=== PATIENT | female | born 1955 | race Caucasian/White ===

== ENCOUNTER 2019-01-03 09:02 | Inpatient (IN) | payer BC ==
[~2019-01-03] VITALS: Ht 142.2 cm; Wt 48.8 kg
[2019-01-03] MEDS ORDERED: NOR5 PO (09:35)
[2019-01-03] MEDS ORDERED: FUROSEMIDE20 MG PO (09:35)
[2019-01-03] MEDS ORDERED: CARVEDILOL3.125 M1 PO (09:36)
[2019-01-03] MEDS ORDERED: SENNA8.6 M2 PO (09:37)
[2019-01-03] MEDS ORDERED: ACETAMINOPHEN-H1 TA1 PO (09:38)
[2019-01-03] MEDS ORDERED: GLYBURIDE5 MG PO (09:39)
[2019-01-03] MEDS ORDERED: PRO40 PO (09:39)
[2019-01-03] MEDS ORDERED: NOVAPLUS VANCO125 MG PO (09:40)
[2019-01-03 10:42] LABS: CALCIUM 8.1 mg/dL (8.5-10.1); CARBON DIOXIDE 27.7 mmol/L (21-32); CREATININE SERUM 2.9 mg/dL (0.6-1.0); POTASSIUM SERUM 4.6 mmol/L (3.5-5.1)
[2019-01-03 10:56] LABS: BILIRUBIN TOTAL 0.5 mg/dL (0.20-1.00); TOTAL PROTEIN, SERUM 6.5 g/dL (6.4-8.2)
[2019-01-03 11:03] LABS: ALBUMIN 1.6 g/dL (3.4-5.0)
[2019-01-03 13:51] LABS: BASOPHIL % 0.9 % (0-2); PLATELET COUNT 324 x10^3mcL (130-400)
[2019-01-03 14:47] LABS: MAGNESIUM 2.6 mg/dL (1.8-2.4); PHOSPHOROUS 3.5 mg/dL (2.5-4.9)
[2019-01-03 14:50] LABS: CHOLESTEROL/HDL RATIO 4.6
[2019-01-03 14:54] VITALS: BP 117/62
[2019-01-03 14:57] VITALS: Ht 142.2 cm; Wt 48.8 kg
[2019-01-03 16:01] LABS: RED CELL DISTRIBUTION WIDTH 16.2 % (11.5-14.5)
[2019-01-03 22:21] VITALS: BP 134/74
[2019-01-04 05:16] VITALS: BP 130/56
[2019-01-04 08:47] VITALS: BP 148/67
[2019-01-04 09:02] LABS: PLATELET COUNT 299 x10^3mcL (130-400)
[2019-01-04 09:04] LABS: BASOPHIL % 0 % (0-2); RED CELL DISTRIBUTION WIDTH 18.4 % (11.5-14.5)
[2019-01-04 09:26] LABS: CALCIUM 7.8 mg/dL (8.5-10.1); CARBON DIOXIDE 29.3 mmol/L (21-32); MAGNESIUM 1.8 mg/dL (1.8-2.4); PHOSPHOROUS 2.1 mg/dL (2.5-4.9); POTASSIUM SERUM 3.4 mmol/L (3.5-5.1)
[2019-01-04 13:48] VITALS: BP 145/65
[2019-01-04 15:46] LABS: SOURCE FLUID PLEURAL
[2019-01-04 16:01] LABS: APPEARANCE FLUID CLEAR
[2019-01-04 16:02] LABS: RBC FLUID 128 /cumm; WBC FLUID 61 /cumm
[2019-01-04 16:03] LABS: LYMPHOCYTE FLUID 50 %; MONOCYTE FLUID 10 %
[2019-01-04 16:05] LABS: COLOR FLUID PALE YELLOW
[2019-01-04 16:49] VITALS: BP 98/54
[2019-01-04 19:44] VITALS: BP 133/50
[2019-01-05 05:07] VITALS: BP 178/76
[2019-01-05 06:39] VITALS: BP 145/62
[2019-01-05 06:53] LABS: CALCIUM 7.7 mg/dL (8.5-10.1); CARBON DIOXIDE 28.3 mmol/L (21-32); CREATININE SERUM 2.3 mg/dL (0.6-1.0); MAGNESIUM 1.8 mg/dL (1.8-2.4); POTASSIUM SERUM 3.7 mmol/L (3.5-5.1)
[2019-01-05 07:07] LABS: PLATELET COUNT 328 x10^3mcL (130-400); RED CELL DISTRIBUTION WIDTH 17.2 % (11.5-14.5)
[2019-01-05 09:00] VITALS: BP 128/56
[2019-01-05 09:10] LABS: BAND NEUTROPHIL 0 % (0-10); BASOPHIL 0 % (0-2); MONOCYTE 5 % (0-7); SEGMENTED NEUTROPHILS 89 % (37-75)
[2019-01-05 09:13] LABS: rbc morphology (normal/abnorm) ABNORMAL (NORMAL)
[2019-01-05 09:14] LABS: PLATELET MORPHOLOGY PLATELETS NORMAL
[2019-01-05 12:00] VITALS: BP 147/61
[2019-01-05 16:40] VITALS: BP 134/61
[2019-01-05 20:35] VITALS: BP 127/56
[2019-01-06 04:47] VITALS: BP 143/61
[2019-01-06 07:51] LABS: CALCIUM 7.7 mg/dL (8.5-10.1); CARBON DIOXIDE 29.7 mmol/L (21-32); CREATININE SERUM 1.7 mg/dL (0.6-1.0); POTASSIUM SERUM 3.2 mmol/L (3.5-5.1)
[2019-01-06 08:43] LABS: PLATELET COUNT 243 x10^3mcL (130-400); RED CELL DISTRIBUTION WIDTH 16.5 % (11.5-14.5)
[2019-01-06 09:10] VITALS: BP 128/61
[2019-01-06 09:49] LABS: BAND NEUTROPHIL 3 % (0-10); BASOPHIL 0 % (0-2); MONOCYTE 4 % (0-7); SEGMENTED NEUTROPHILS 82 % (37-75); rbc morphology (normal/abnorm) NORMAL (NORMAL)
[2019-01-06 09:50] LABS: PLATELET MORPHOLOGY PLATELETS NORMAL
[2019-01-06 13:15] VITALS: BP 117/46
[2019-01-06 16:30] VITALS: BP 146/86
[2019-01-06 20:42] VITALS: BP 172/78
[2019-01-06 21:58] VITALS: BP 151/70
[2019-01-07 05:04] VITALS: BP 126/58
[2019-01-07 08:14] VITALS: BP 136/73
[2019-01-07 08:17] LABS: BASOPHIL % 0.2 % (0-2); PLATELET COUNT 293 x10^3mcL (130-400)
[2019-01-07 08:18] LABS: RED CELL DISTRIBUTION WIDTH 16.4 % (11.5-14.5)
[2019-01-07 08:34] LABS: CALCIUM 7.7 mg/dL (8.5-10.1); CARBON DIOXIDE 26.6 mmol/L (21-32); CREATININE SERUM 2.4 mg/dL (0.6-1.0); POTASSIUM SERUM 4.1 mmol/L (3.5-5.1)
[2019-01-07 11:56] VITALS: BP 147/70
[2019-01-07 16:19] VITALS: BP 130/61
[2019-01-07 18:50] VITALS: BP 181/78
[2019-01-08 05:43] VITALS: BP 158/69
[2019-01-08 06:36] LABS: CALCIUM 7.5 mg/dL (8.5-10.1); CARBON DIOXIDE 27.3 mmol/L (21-32); CREATININE SERUM 1.6 mg/dL (0.6-1.0)
[2019-01-08 06:54] LABS: BASOPHIL % 0.2 % (0-2); PLATELET COUNT 292 x10^3mcL (130-400)
[2019-01-08 07:08] LABS: RED CELL DISTRIBUTION WIDTH 16.6 % (11.5-14.5)
[2019-01-08 08:11] VITALS: BP 157/71
[2019-01-08 12:14] VITALS: BP 150/73
[2019-01-08 16:38] VITALS: BP 165/75
[2019-01-08 16:50] VITALS: BP 147/70
[2019-01-08 19:51] VITALS: BP 161/70
[2019-01-09] VITALS (7 sets, daily range): BP systolic 134–174; BP diastolic 64–78
[2019-01-09 06:28] LABS: BASOPHIL % 0.3 % (0-2); PLATELET COUNT 329 x10^3mcL (130-400); RED CELL DISTRIBUTION WIDTH 16.1 % (11.5-14.5)
[2019-01-09 07:02] LABS: CALCIUM 7.7 mg/dL (8.5-10.1); CARBON DIOXIDE 24.5 mmol/L (21-32); CREATININE SERUM 2.1 mg/dL (0.6-1.0); POTASSIUM SERUM 4.1 mmol/L (3.5-5.1)
[2019-01-09 12:46] LABS: BASOPHIL % 0.2 % (0-2); PLATELET COUNT 289 x10^3mcL (130-400)
[2019-01-09 12:50] LABS: RED CELL DISTRIBUTION WIDTH 16.5 % (11.5-14.5)
[2019-01-09 12:52] LABS: CALCIUM 7.6 mg/dL (8.5-10.1); CREATININE SERUM 2.1 mg/dL (0.6-1.0); POTASSIUM SERUM 4.2 mmol/L (3.5-5.1)
[2019-01-09] MEDS ORDERED: DEX4 GLUCOSE15 GM PO (13:24)
[2019-01-09] MEDS ORDERED: TAMIFLU30 MG PO (13:25)
[2019-01-09] MEDS ORDERED: LAC PO (14:03)
[2019-01-09] MEDS ORDERED: AMOXICILLIN500 M1 PO (14:11)
[2019-01-09] MEDS ORDERED: FLE10 PO (14:13)
[2019-01-09] MEDS ORDERED: LEVAQUIN250 M1 PO (14:31)
== END 2019-01-09 20:15 | disposition home or self-care (01) | DRG 70 ==
LOC: ED 09:02 → DU 13:28 → MU 01-05 11:55 → DU 01-07 17:07
PROVIDERS: Emergency Medicine; Internal Medicine; ADMIT General Practice
PROC: 5A1D70Z Performance of Urinary Filtration, Intermittent, Less than 6 Hours Per Day (ICD-10-PCS; principal; 2019-01-03)
PROC: 5A1D70Z Performance of Urinary Filtration, Intermittent, Less than 6 Hours Per Day (ICD-10-PCS; 2019-01-04)
PROC: 0W9B3ZZ Drainage of Left Pleural Cavity, Percutaneous Approach (ICD-10-PCS; 2019-01-04)
PROC: 5A1D70Z Performance of Urinary Filtration, Intermittent, Less than 6 Hours Per Day (ICD-10-PCS; 2019-01-05)
PROC: 5A1D70Z Performance of Urinary Filtration, Intermittent, Less than 6 Hours Per Day (ICD-10-PCS; 2019-01-07)
DX: G93.41 Metabolic encephalopathy (principal); E43 Unspecified severe protein-calorie malnutrition; N18.6 End stage renal disease; J18.9 Pneumonia, unspecified organism; E87.1 Hypo-osmolality and hyponatremia; J90 Pleural effusion, not elsewhere classified; I13.2 Hypertensive heart and chronic kidney disease with heart failure and with stage 5 chronic kidney disease, or end stage renal disease; E11.649 Type 2 diabetes mellitus with hypoglycemia without coma; E83.41 Hypermagnesemia; B96.89 Other specified bacterial agents as the cause of diseases classified elsewhere; I50.9 Heart failure, unspecified; E83.39 Other disorders of phosphorus metabolism; E87.6 Hypokalemia; J10.1 Influenza due to other identified influenza virus with other respiratory manifestations; E11.22 Type 2 diabetes mellitus with diabetic chronic kidney disease; D63.8 Anemia in other chronic diseases classified elsewhere; E78.5 Hyperlipidemia, unspecified; Z83.3 Family history of diabetes mellitus; Z86.73 Personal history of transient ischemic attack (TIA), and cerebral infarction without residual deficits; Z99.2 Dependence on renal dialysis; Z68.24 Body mass index [BMI] 24.0-24.9, adult
CPT/HCPCS: 32555; 82962; 83880; 87804; 88344; 94150; 97110-GP; 97116-GP; 97530-GP; C1729; J0456; J0696; J1644; J2405; J2543; J3010; J3480; J3490; J7030; J7040; J7042; J7050; J7060; P9047; Q0092

== ENCOUNTER 2019-02-08 00:31 | Inpatient (IN) | payer BC ==
[~2019-02-08] VITALS: Ht 144.8 cm; Wt 39.9 kg
[~2019-02-08 00:31] MED LIST: ACETAMINOPHEN-H1 TA1 PO; AMOXICILLIN500 M1 PO; CARVEDILOL3.125 M1 PO; DEX4 GLUCOSE15 GM PO; FLE10 PO; FUROSEMIDE20 MG PO; GLYBURIDE5 MG PO; LAC PO; LEVAQUIN250 M1 PO; NOR5 PO; NOVAPLUS VANCO125 MG PO; PRO40 PO; SENNA8.6 M2 PO; TAMIFLU30 MG PO
[2019-02-08 00:41] VITALS: Ht 144.8 cm; Wt 39.9 kg
[2019-02-08 02:59] LABS: BILIRUBIN TOTAL 0.3 mg/dL (0.20-1.00); CALCIUM 8.1 mg/dL (8.5-10.1); CARBON DIOXIDE 31.3 mmol/L (21-32); CREATININE SERUM 3.7 mg/dL (0.6-1.0); POTASSIUM SERUM 3.4 mmol/L (3.5-5.1); TOTAL PROTEIN, SERUM 6.7 g/dL (6.4-8.2)
[2019-02-08 03:06] LABS: PLATELET COUNT 336 x10^3mcL (130-400)
[2019-02-08 03:09] LABS: ALBUMIN 1.8 g/dL (3.4-5.0)
[2019-02-08 03:12] LABS: BASOPHIL % 0 % (0-2); RED CELL DISTRIBUTION WIDTH 21.3 % (11.5-14.5)
[2019-02-08] MEDS ORDERED: LOMOTIL1 TAB PO (03:22)
[2019-02-08 04:51] LABS: T3 TOTAL 0.42 ng/mL
[2019-02-08 05:02] LABS: FREE T4 0.61 ng/dL (0.76-1.46)
[2019-02-08 05:06] LABS: FREE THYROXINE INDEX 1.2 ug/dL (1.4-4.5); T4(THYROXINE) 3.1 ug/dL (4.7-13.3)
[2019-02-08 07:58] LABS: PLATELET COUNT 303 x10^3mcL (130-400)
[2019-02-08 08:04] LABS: CARBON DIOXIDE 31.1 mmol/L (21-32); CREATININE SERUM 3.8 mg/dL (0.6-1.0); POTASSIUM SERUM 3.6 mmol/L (3.5-5.1)
[2019-02-08 08:35] LABS: RED CELL DISTRIBUTION WIDTH 21.6 % (11.5-14.5)
[2019-02-08 09:49] LABS: BAND NEUTROPHIL 1 % (0-10); BASOPHIL 0 % (0-2); MONOCYTE 2 % (0-7); SEGMENTED NEUTROPHILS 95 % (37-75)
[2019-02-08 09:50] LABS: rbc morphology (normal/abnorm) ABNORMAL (NORMAL)
[2019-02-08 14:21] VITALS: BP 161/75
[2019-02-08 18:01] VITALS: BP 139/71
[2019-02-08 21:38] VITALS: BP 120/64
[2019-02-09] VITALS (7 sets, daily range): BP systolic 128–168; BP diastolic 68–80
[2019-02-09 07:28] LABS: CALCIUM 7.4 mg/dL (8.5-10.1); CARBON DIOXIDE 27.9 mmol/L (21-32); CREATININE SERUM 2.1 mg/dL (0.6-1.0); POTASSIUM SERUM 3.1 mmol/L (3.5-5.1)
[2019-02-09 08:07] LABS: PLATELET COUNT 288 x10^3mcL (130-400)
[2019-02-09 09:23] LABS: BASOPHIL % 0 % (0-2); RED CELL DISTRIBUTION WIDTH 21.7 % (11.5-14.5)
[2019-02-10] VITALS (7 sets, daily range): BP systolic 103–191; BP diastolic 61–92
[2019-02-10 06:20] LABS: CALCIUM 7.4 mg/dL (8.5-10.1); CREATININE SERUM 2.4 mg/dL (0.6-1.0); POTASSIUM SERUM 3.8 mmol/L (3.5-5.1)
[2019-02-10 06:29] LABS: BASOPHIL % 0.3 % (0-2); PLATELET COUNT 319 x10^3mcL (130-400)
[2019-02-10 07:32] LABS: RED CELL DISTRIBUTION WIDTH 20.5 % (11.5-14.5)
[2019-02-10 10:27] LABS: rbc morphology (normal/abnorm) ABNORMAL (NORMAL)
[2019-02-11 06:31] VITALS: BP 178/82
[2019-02-11 06:48] LABS: BASOPHIL % 0.2 % (0-2); PLATELET COUNT 174 x10^3mcL (130-400)
[2019-02-11 06:57] LABS: RED CELL DISTRIBUTION WIDTH 19.9 % (11.5-14.5)
[2019-02-11 07:24] LABS: CALCIUM 7.7 mg/dL (8.5-10.1); CARBON DIOXIDE 25.3 mmol/L (21-32); CREATININE SERUM 1.7 mg/dL (0.6-1.0); POTASSIUM SERUM 3.5 mmol/L (3.5-5.1)
[2019-02-11 09:34] VITALS: BP 178/96
[2019-02-11 16:15] VITALS: BP 121/62; BP 178/96
[2019-02-11 17:59] VITALS: BP 112/60
== END 2019-02-11 18:19 | disposition short-term general hospital (02) | DRG 871 ==
LOC: ED 00:31 → DU 03:06 → MU 02-10 11:30
PROVIDERS: Emergency Medicine; Internal Medicine; Internal Medicine Gastroenterology; ADMIT Family Medicine
PROC: 0DB68ZX Excision of Stomach, Via Natural or Artificial Opening Endoscopic, Diagnostic (ICD-10-PCS; 2019-02-09)
PROC: 5A1D70Z Performance of Urinary Filtration, Intermittent, Less than 6 Hours Per Day (ICD-10-PCS; 2019-02-09)
PROC: 0W9B3ZZ Drainage of Left Pleural Cavity, Percutaneous Approach (ICD-10-PCS; principal; 2019-02-09 08:30)
PROC: 0DB58ZX Excision of Esophagus, Via Natural or Artificial Opening Endoscopic, Diagnostic (ICD-10-PCS; 2019-02-09 08:30)
PROC: 5A1D70Z Performance of Urinary Filtration, Intermittent, Less than 6 Hours Per Day (ICD-10-PCS; 2019-02-10)
DX: A41.9 Sepsis, unspecified organism (principal); K27.4 Chronic or unspecified peptic ulcer, site unspecified, with hemorrhage; N18.6 End stage renal disease; J18.9 Pneumonia, unspecified organism; E43 Unspecified severe protein-calorie malnutrition; I12.0 Hypertensive chronic kidney disease with stage 5 chronic kidney disease or end stage renal disease; N17.9 Acute kidney failure, unspecified; E87.1 Hypo-osmolality and hyponatremia; M46.26 Osteomyelitis of vertebra, lumbar region; K92.0 Hematemesis; Z68.1 Body mass index [BMI] 19.9 or less, adult; J91.8 Pleural effusion in other conditions classified elsewhere; J44.0 Chronic obstructive pulmonary disease with (acute) lower respiratory infection; E03.9 Hypothyroidism, unspecified; E87.6 Hypokalemia; K76.0 Fatty (change of) liver, not elsewhere classified; K20.9 Esophagitis, unspecified; K44.9 Diaphragmatic hernia without obstruction or gangrene; K31.7 Polyp of stomach and duodenum; D63.8 Anemia in other chronic diseases classified elsewhere; E11.51 Type 2 diabetes mellitus with diabetic peripheral angiopathy without gangrene; E11.649 Type 2 diabetes mellitus with hypoglycemia without coma; M51.46 Schmorl's nodes, lumbar region; E11.22 Type 2 diabetes mellitus with diabetic chronic kidney disease; E78.5 Hyperlipidemia, unspecified; Z90.49 Acquired absence of other specified parts of digestive tract; Z90.710 Acquired absence of both cervix and uterus; Z83.3 Family history of diabetes mellitus; Z99.2 Dependence on renal dialysis; Z86.73 Personal history of transient ischemic attack (TIA), and cerebral infarction without residual deficits; Z87.11 Personal history of peptic ulcer disease
CPT/HCPCS: 32555; 43235; 82962; 84439; 97116-GP; 97530-GP; C1729; C9113; J1200; J1610; J1644; J1815; J2250; J2310; J2543; J2765; J3010; J3370; J3490; J7030; J7042; J7050; Q0092

== ENCOUNTER 2019-02-20 03:10 | Inpatient (IN) | payer BC ==
[~2019-02-20] VITALS: Ht 152.4 cm; Wt 39.7 kg
[~2019-02-20 03:10] MED LIST changes: +LOMOTIL1 TAB PO
[2019-02-20 04:42] LABS: microscopic required? YES; urine erythrocyte NEGATIVE (NEGATIVE)
[2019-02-20 05:12] LABS: PLATELET COUNT 430 x10^3mcL (130-400); RED CELL DISTRIBUTION WIDTH 19.1 % (11.5-14.5)
[2019-02-20 05:18] LABS: MONOCYTE 2 % (0-7); SEGMENTED NEUTROPHILS 94 % (37-75)
[2019-02-20 05:20] LABS: rbc morphology (normal/abnorm) ABNORMAL (NORMAL)
[2019-02-20 05:21] LABS: PLATELET MORPHOLOGY PLATELETS NORMAL
[2019-02-20 05:23] LABS: CALCIUM 8.7 mg/dL (8.5-10.1); CARBON DIOXIDE 28.6 mmol/L (21-32); POTASSIUM SERUM 3.3 mmol/L (3.5-5.1)
[2019-02-20 05:26] LABS: BILIRUBIN TOTAL 0.3 mg/dL (0.20-1.00); TOTAL PROTEIN, SERUM 7.7 g/dL (6.4-8.2)
[2019-02-20 06:42] LABS: FREE T4 0.91 ng/dL (0.76-1.46)
[2019-02-20 06:51] LABS: FREE T4 0.92 ng/dL (0.76-1.46); T3 TOTAL 0.68 ng/mL; T4(THYROXINE) 5.8 ug/dL (4.7-13.3)
[2019-02-20 06:52] LABS: CHOLESTEROL/HDL RATIO 4.3
[2019-02-20 07:48] VITALS: Ht 152.4 cm; Wt 39.7 kg
[2019-02-20 11:13] VITALS: BP 125/60
[2019-02-20 12:00] VITALS: BP 126/74
[2019-02-20 16:00] VITALS: BP 114/57
[2019-02-20 20:47] VITALS: BP 164/74
[2019-02-21 05:36] VITALS: BP 129/47
[2019-02-21 06:43] LABS: CALCIUM 7.9 mg/dL (8.5-10.1); CARBON DIOXIDE 23.9 mmol/L (21-32); CREATININE SERUM 3.2 mg/dL (0.6-1.0); MAGNESIUM 1.9 mg/dL (1.8-2.4); PHOSPHOROUS 4.4 mg/dL (2.5-4.9); POTASSIUM SERUM 4.6 mmol/L (3.5-5.1)
[2019-02-21 06:46] LABS: BASOPHIL % 0.2 % (0-2); PLATELET COUNT 340 x10^3mcL (130-400)
[2019-02-21 08:07] LABS: RED CELL DISTRIBUTION WIDTH 19.1 % (11.5-14.5)
[2019-02-21 08:56] VITALS: BP 168/72
[2019-02-21 12:19] LABS: rbc morphology (normal/abnorm) ABNORMAL (NORMAL)
[2019-02-21 13:36] VITALS: BP 177/71
[2019-02-21 17:20] VITALS: BP 180/71
[2019-02-21 18:50] LABS: BASOPHIL % 0.4 % (0-2); PLATELET COUNT 345 x10^3mcL (130-400)
[2019-02-21 18:53] LABS: RED CELL DISTRIBUTION WIDTH 18.4 % (11.5-14.5)
[2019-02-21 20:58] VITALS: BP 156/63
[2019-02-22 05:50] VITALS: BP 198/92
[2019-02-22 06:37] LABS: BASOPHIL % 0.2 % (0-2); PLATELET COUNT 342 x10^3mcL (130-400)
[2019-02-22 06:56] LABS: RED CELL DISTRIBUTION WIDTH 18.4 % (11.5-14.5)
[2019-02-22 07:02] LABS: CALCIUM 8.2 mg/dL (8.5-10.1); CREATININE SERUM 2.5 mg/dL (0.6-1.0); MAGNESIUM 1.6 mg/dL (1.8-2.4); PHOSPHOROUS 3.8 mg/dL (2.5-4.9); POTASSIUM SERUM 3.7 mmol/L (3.5-5.1)
[2019-02-22 09:38] VITALS: BP 150/64
[2019-02-22 13:03] VITALS: BP 191/83
[2019-02-22 18:51] VITALS: BP 189/82
[2019-02-22 21:10] VITALS: BP 163/75
[2019-02-23 05:54] VITALS: BP 180/82
[2019-02-23 06:27] LABS: CALCIUM 8.1 mg/dL (8.5-10.1); CARBON DIOXIDE 25.2 mmol/L (21-32); CREATININE SERUM 3.2 mg/dL (0.6-1.0); MAGNESIUM 1.8 mg/dL (1.8-2.4); POTASSIUM SERUM 4.3 mmol/L (3.5-5.1)
[2019-02-23 08:20] LABS: BASOPHIL % 0.3 % (0-2); PLATELET COUNT 346 x10^3mcL (130-400); RED CELL DISTRIBUTION WIDTH 18.3 % (11.5-14.5)
[2019-02-23 09:54] VITALS: BP 160/86
[2019-02-23 13:04] VITALS: BP 186/80
[2019-02-23 15:42] VITALS: BP 182/85
[2019-02-23] MEDS ORDERED: VANCOCIN125 MG PO (15:43)
[2019-02-23] MEDS ORDERED: LEVAQUIN750 MG PO (15:46)
[2019-02-23 19:40] VITALS: BP 126/66
[2019-02-24 13:05] LABS: LIVER-KIDNEY MICROSOMAL AB 1.2 Units (0.0-20.0)
== END 2019-02-23 20:20 | disposition home health service (06) | DRG 871 ==
LOC: ED 03:10 → IC 06:12 → DU 06:12 → IC 07:37 → DU 19:20
PROVIDERS: Emergency Medicine; Family Medicine; Specialist; ADMIT Internal Medicine
PROC: 30233N1 Transfusion of Nonautologous Red Blood Cells into Peripheral Vein, Percutaneous Approach (ICD-10-PCS; principal; 2019-02-21)
PROC: 5A1D70Z Performance of Urinary Filtration, Intermittent, Less than 6 Hours Per Day (ICD-10-PCS; 2019-02-21)
DX: A41.9 Sepsis, unspecified organism (principal); N18.6 End stage renal disease; J18.1 Lobar pneumonia, unspecified organism; G93.41 Metabolic encephalopathy; E43 Unspecified severe protein-calorie malnutrition; Z68.1 Body mass index [BMI] 19.9 or less, adult; E87.1 Hypo-osmolality and hyponatremia; A04.72 Enterocolitis due to Clostridium difficile, not specified as recurrent; I12.0 Hypertensive chronic kidney disease with stage 5 chronic kidney disease or end stage renal disease; M86.8X9 Other osteomyelitis, unspecified sites; E11.22 Type 2 diabetes mellitus with diabetic chronic kidney disease; D72.829 Elevated white blood cell count, unspecified; E11.649 Type 2 diabetes mellitus with hypoglycemia without coma; E87.6 Hypokalemia; E78.5 Hyperlipidemia, unspecified; E02 Subclinical iodine-deficiency hypothyroidism; D63.8 Anemia in other chronic diseases classified elsewhere; E11.69 Type 2 diabetes mellitus with other specified complication; Z99.2 Dependence on renal dialysis; Z86.73 Personal history of transient ischemic attack (TIA), and cerebral infarction without residual deficits; Z87.11 Personal history of peptic ulcer disease; Z79.899 Other long term (current) drug therapy
CPT/HCPCS: 82962; 84439; 86376; 97110-GP; 97116-GP; 97530-GP; J0696; J1644; J1956; J2405; J2543; J3490; J7030; J7040; J7050; J7070; P9016; P9047

== ENCOUNTER 2019-04-01 16:50 | Inpatient (IN) | payer BC, OTHER ==
[~2019-04-01] VITALS: Ht 152.4 cm; Wt 34.9 kg
[~2019-04-01 16:50] MED LIST changes: +LEVAQUIN750 MG PO; +VANCOCIN125 MG PO
[2019-04-01 17:02] VITALS: Ht 152.4 cm; Wt 34.9 kg
--- NOTE | 2019-04-01 18:43 | NUR ---
PT PRESENTS TO ED DUE TO GETTING CHILLS AFTER RECEIVING DIALYSIS TODAY. PER PATIENT'S , PATIENT RECEIVES DIALYSIS ON MONDAYS AND FRIDAYS. STS THAT PATIENT WAS GIVEN INSTRUCTIONS TO GET A BLOOD CULTURE RESULTS. PATIENT DOES STS SHE CURRENTLY HAS RIGHT SIDED FLANK PAIN. AWAITING MSE
--- NOTE | 2019-04-01 19:11 | NUR ---
REPORT OFF TO DOUGLAS SIMPSON
--- NOTE | 2019-04-01 19:14 | NUR ---
REPORT RECIEVED FROM COLBY COLE
[2019-04-01 19:19] LABS: PLATELET COUNT 236 x10^3mcL (130-400)
[2019-04-01 19:24] LABS: RED CELL DISTRIBUTION WIDTH 15.8 % (11.5-14.5)
--- NOTE | 2019-04-01 19:27 | NUR ---
PT STATES SHE IS UNABLE TO PROVIDE URINE AT THIS TIME
[2019-04-01 19:34] LABS: C REACTIVE PROTEIN 11.5 mg/dL (<=0.9); CREATININE SERUM 3.5 mg/dL (0.6-1.0); GFR1 14 mL/min
[2019-04-01 19:41] LABS: CK-MB 2.6 ng/mL (0-3.6)
[2019-04-01 19:52] LABS: BAND NEUTROPHIL 2 % (0-10); MONOCYTE 2 % (0-7); SEGMENTED NEUTROPHILS 89 % (37-75)
[2019-04-01 19:55] LABS: PLATELET MORPHOLOGY PLATELETS NORMAL; rbc morphology (normal/abnorm) ABNORMAL (NORMAL)
[2019-04-01 19:58] LABS: CALCIUM 8.6 mg/dL (8.5-10.1); CARBON DIOXIDE 30.3 mmol/L (21-32); CHLORIDE SERUM 95 mmol/L (98-107); GLUCOSE SERUM 248 mg/dL (74-106); POTASSIUM SERUM 4.3 mmol/L (3.5-5.1); SODIUM SERUM 139 mmol/L (136-145)
[2019-04-01 20:04] LABS: ALKALINE PHOSPHATASE 121 U/L (46-116); ALT/SGPT 15 U/L (14-59); AST/SGOT 15 U/L (15-37); BILIRUBIN TOTAL 0.25 mg/dL (0.20-1.00); TOTAL PROTEIN, SERUM 7.5 g/dL (6.4-8.2)
[2019-04-01 20:05] LABS: ALBUMIN 2.5 g/dL (3.4-5.0)
[2019-04-01 20:26] LABS: ERYTHROCYTE SED RATE 103 mm/hr (0-30)
[2019-04-01 20:38] LABS: T3 TOTAL 0.71 ng/mL
[2019-04-01 20:52] LABS: FREE T4 0.72 ng/dL (0.76-1.46)
--- NOTE | 2019-04-01 20:58 | NUR ---
PT STATES SHE IS STILL UNABLE TO PROVIDE URINE AT THIS TIME
[2019-04-01 21:01] LABS: FREE THYROXINE INDEX 1.5 ug/dL (1.4-4.5); T4(THYROXINE) 4.3 ug/dL (4.7-13.3)
[2019-04-01] MEDS ORDERED: COR3 PO (22:23)
--- NOTE | 2019-04-01 22:43 | NUR ---
DONG REPORT TO EM COLE
[2019-04-01 22:51] LABS: MAGNESIUM 2.1 mg/dL (1.8-2.4); PHOSPHOROUS 4.8 mg/dL (2.5-4.9)
[2019-04-01 22:59] LABS: CHOLESTEROL/HDL RATIO 5.8
[2019-04-01 23:09] VITALS: BP 171/89
--- NOTE | 2019-04-01 23:12 | NUR ---
RECEIVED PT FROM ED VIA GHISLAINE. ORIENTED PT TO ROOM AND SURROUNDINGS. IV NOTED TO LFA PATENT AND INTACT. TELE 24 PLACED ON PT READING NSR. INSTRUCTED PT ON THE USE OF CALL LIGHT FOR ASSISTANCE. ENDORSED PT TO PRIMARY NURSE BHARTI
--- NOTE | 2019-04-01 23:55 | NUR ---
RECIEVED PT FROM SURU RN IN NO ACUTE DISTRESS. TELE #24, SR. BREATHING E/U ON RA. PT HAD LOOSE BM AT THIS TIME. HD ACCESS TO RCW AND RFA. IV TO LFA PATENT AND INFUSING. ORIENTED TO ROOM. AT BEDSIDE. BED IN LOWEST POSITION, 2 SIDE RAILS UP, CALL LIGHT IN REACH. INSTRUCTED TO CALL FOR ASSISTANCE.
--- NOTE | 2019-04-02 03:28 | NUR ---
RESTING IN BED WITH EYES CLOSED. BREATHING E/U. NO ACUTE DISTRESS NOTED. WILL CONTINUE TO MONITOR.
[2019-04-02 05:06] VITALS: BP 186/86
--- NOTE | 2019-04-02 06:55 | NUR ---
NO C/O CHILLS OVERNIGHT. NO ACUTE DISTRESS NOTED. NO ACUTE CHANGES. WILL ENDORSE TO ONCOMING RN.
[2019-04-02 06:57] LABS: BASOPHIL % 0.1 % (0-2); PLATELET COUNT 245 x10^3mcL (130-400)
[2019-04-02 07:04] LABS: CALCIUM 8.6 mg/dL (8.5-10.1); CARBON DIOXIDE 29.5 mmol/L (21-32); CREATININE SERUM 3.6 mg/dL (0.6-1.0); POTASSIUM SERUM 3.9 mmol/L (3.5-5.1)
--- NOTE | 2019-04-02 07:05 | NUR ---
RECEIVED PATIENT FROM PSYCH COORDINATOR NURSE. PATIENT IS AWAKE, ALERT AND ORIENTED. TELE#24, SR, HR 96, DENIES CP AND PRESSURE. ON ROOM AIR, BREATHING EVEN AND UNLABORED, DENIES SOB. AV SHUNT NOTED TO RFA. PERMACATH NOTED TO RCW. GEN WEAKNESS WITH FALL PREC IN PLACE. IV NOTED TO LFA, IVF INFUSING WELL ORDERED, NO S/S ERYTHEMA AT SITE. CALL LIGHT WITHIN EASY REACH. WILL CONTINUE PLAN OF CARE.
[2019-04-02 07:40] LABS: RED CELL DISTRIBUTION WIDTH 16.4 % (11.5-14.5)
[2019-04-02 08:10] VITALS: BP 180/83
--- NOTE | 2019-04-02 12:12 | NUR ---
PATIENT STRAIGHT CATHED AT THIS TIME FOR UA SAMPLE. PATIENT TOLERATED WELL. URINE IS PALE YELLOW AND CLEAR.
[2019-04-02 12:15] VITALS: BP 172/79
--- NOTE | 2019-04-02 12:37 | NUR ---
DR MCCOY NOTIFIED OF PATIENTS DIARREAH. LABS TO BE ORDERED. WILL FOLLOW UP.
[2019-04-02 16:08] LABS: microscopic required? YES; urine erythrocyte TRACE (NEGATIVE)
[2019-04-02 16:26] VITALS: BP 176/80
--- NOTE | 2019-04-02 18:46 | NUR ---
PATIENT RESTING EASY. IN NO ACUTE DISTRESS. PATIENT CARE TO BE ENDORSED TO CHILD WELFARE DIRECTOR NURSE.
--- NOTE | 2019-04-02 19:40 | NUR ---
AOX4. TELE #24, SR. LUNGS CLEAR ON RA. BREATHING E/U ON RA. PULSES PALPABLE. NO EDEMA. BOWEL SOUNDS HYPERACTIVE. PT HAD LOOSE BM AT THIS TIME. VOIDS. HD ACCESS TO RCW AND RFA. SL TO LFA, PATENT. DENIES PAIN. DENIES CHILLS. AT BEDSIDE. BED IN LOWEST POSITION, 2 SIDE RAILS UP, CALL LIGHT IN REACH. INSTRUCTED TO CALL FOR ASSISTANCE.
[2019-04-02 19:47] VITALS: BP 150/71
--- NOTE | 2019-04-02 21:37 | NUR ---
UA RESULTS NEGATIVE. OB STOOL POSITIVE. DR. HOOKER NOTIFIED VIA [employer].
--- NOTE | 2019-04-02 22:59 | NUR ---
DR. HOOKER NOTIFIED VIA [employer] OF C-DIFF POSITIVE. PLACED ON CONTACT ISOLATION.
[2019-04-03] VITALS (8 sets, daily range): BP systolic 114–199; BP diastolic 57–89
--- NOTE | 2019-04-03 02:10 | NUR ---
RESTING IN BED WITH EYES CLOSED. BREATHING E/U. NO ACUTE DISTRESS NOTED. WILL CONTINUE TO MONITOR.
--- NOTE | 2019-04-03 06:07 | NUR ---
PT STARTED ON PO VANCO FOR +C-DIFF. NO ACUTE CHANGES. NO ACUTE DISTRESS NOTED. WILL ENDORSE TO ONCOMING RN.
[2019-04-03 06:37] LABS: BASOPHIL % 0.2 % (0-2); PLATELET COUNT 242 x10^3mcL (130-400)
[2019-04-03 06:45] LABS: CALCIUM 8.9 mg/dL (8.5-10.1); CARBON DIOXIDE 23.3 mmol/L (21-32); MAGNESIUM 2.1 mg/dL (1.8-2.4); PHOSPHOROUS 6.1 mg/dL (2.5-4.9); POTASSIUM SERUM 4.2 mmol/L (3.5-5.1)
[2019-04-03 06:52] LABS: CREATININE SERUM 4.2 mg/dL (0.6-1.0)
--- NOTE | 2019-04-03 06:59 | NUR ---
DR TORRES NOTIFIED VIA [employer] OF BUN 63 AND CREATININE 4.2
[2019-04-03 07:06] LABS: RED CELL DISTRIBUTION WIDTH 16.1 % (11.5-14.5)
--- NOTE | 2019-04-03 07:20 | NUR ---
RECEIVED PT FROM JANEY HAY. PT AA/OX4. FOLLOWS COMPLEX COMMANDS, RESPONDS TO VERBAL STIMULI. FACE SYMMETRICAL. SPEECH CLEAR. NO CABRERA. NO DIZZINESS. SPEAKS ARMENIAN. STRENGTH EQUAL BUE/BLE. MILD GENERALIZED WEAKNESS NOTED. ABLE TO REPOSITION INDEPENDENTLY. AT BEDSIDE. PT AND EDUCATED ON CONTACT PLUS PRECAUTIONS, BOTH VERBALIZED UNDERSTANDING. NO COMPLAINT OF PAIN AT THIS TIME. NO SOB ON ROOM AIR. NO CHEST PAIN. PT INCONTINENT OF URINE AND STOOL. STOOL APPEARS LOOSE/BROWN. PERICARE PROVIDED. MILD BLANCHABLE ERYTHEMA NOTED TO BUTTOCKS. HYDRAGUARD APPLIED. BED IN LOW POSITION. CALL LIGHT WITHIN REACH. INSTRUCTED TO USE CALL LIGHT TO CALL FOR ASSISTANCE PRN. VERBALIZED UNDERSTANDING. SIDE RAILS UP X2. FALL PRECAUTIONS IN PLACE. WILL CONTINUE TO MONITOR.
--- NOTE | 2019-04-03 11:50 | NUR ---
PT LAYING IN BED WITH HOB ELEVATED. NO S/S OF ACUTE DISTRESS. DENIES PAIN. NO SOB ON ROOM AIR. CALM/COOPERATIVE. IV WNL, SALINE LOCKED. NO N/V. NO CHEST PAIN. CONTACT PLUS PRECAUTIONS IN PLACE. BED IN LOW POSITION. CALL LIGHT WITHIN REACH. AA/OX4. WILL CONTINUE TO MONITOR.
--- NOTE | 2019-04-03 16:12 | NUR ---
BP CONTINUES TO BE ELEVATED, SBP 166 KENNY, PT NAUSEOUS, DENIES CABRERA. NO DIZZINESS. NO CHEST PAIN. GIVEN IV MED FOR NAUSEA, IV SITE WNL TO LFA, PATENT AND FLUSHES WELL. NO REDNESS, NO SWELLING, NO INFILTRATION. DR. SQUIRES AT BEDSIDE TALKING TO PT/. PO BP MED GIVEN. SEE MAR. WILL CONTINUE TO MONITOR.
--- NOTE | 2019-04-03 18:01 | NUR ---
PT COMPLAINT OF DIZZINESS. BP CHECKED 190/84 KENNY, BP PO MED GIVEN, SEE DEC. AA/OX4. NO N/V. NO CABRERA. NO SOB ON ROOM AIR. NO CHEST PAIN. FACE SYMMETRICAL. SPEECH CLEAR. STRENGTH EQUAL BUE/BLE. AT BEDSIDE. BED IN LOW POSITION. CALL LIGHT WITHIN REACH. WILL CONTINUE TO MONITOR CLOSELY.
--- NOTE | 2019-04-03 18:50 | NUR ---
PT FOUND RESTING IN BED WITH BOTH EYES CLOSED. EASILY AROUSABLE TO VERBAL STIMULI. SPEECH CLEAR. NO CABRERA. NO DIZZINESS. BP DECREASING 180/80, HR 79, DR. HOOKER AWARE OF PREVIOUS BP. NO CHEST PAIN. NO SOB ON ROOM AIR. CALM/COOPERATIVE. BED IN LOW POSITION. CALL LIGHT WITHIN REACH. WILL ENDORSE TO ONCOMING SHIFT.
--- NOTE | 2019-04-03 20:06 | NUR ---
AOX4. TELE #24, SR. LUNGS CLEAR ON RA. BREATHING E/U ON RA. PULSES PALPABLE. NO EDEMA. BOWEL SOUNDS HYPERACTIVE. PT EXPERIENCING LOOSE BM'S. VOIDS. HD ACCESS TO RCW AND RFA. BLANCHABLE REDNESS NOTED TO BUTTOCKS. SL TO LFA, PATENT. DENIES PAIN. DENIES CHILLS. CONTACT PRECAUTIONS IN PLACE FOR POSITIVE C-DIFF. AT BEDSIDE. BED IN LOWEST POSITION, 2 SIDE RAILS UP, CALL LIGHT IN REACH. INSTRUCTED TO CALL FOR ASSISTANCE.
[2019-04-04 00:52] VITALS: BP 141/68
--- NOTE | 2019-04-04 02:05 | NUR ---
RESTING WITH EYES CLOSED. BREATHING E/U. NO ACUTE DISTRESS NOTED. AT BEDSIDE. WILL CONTINUE TO MONITOR.
[2019-04-04 05:51] VITALS: BP 160/71
--- NOTE | 2019-04-04 06:14 | NUR ---
NO ACUTE DISTRESS NOTED. NO ACUTE CHANGES. WILL ENDORSE TO ONCOMING RN.
[2019-04-04 07:12] LABS: BASOPHIL % 0.3 % (0-2); PLATELET COUNT 290 x10^3mcL (130-400)
[2019-04-04 07:20] LABS: CALCIUM 9.2 mg/dL (8.5-10.1); CARBON DIOXIDE 21.1 mmol/L (21-32); MAGNESIUM 2.2 mg/dL (1.8-2.4); PHOSPHOROUS 7.2 mg/dL (2.5-4.9); POTASSIUM SERUM 5.2 mmol/L (3.5-5.1); RED CELL DISTRIBUTION WIDTH 15.6 % (11.5-14.5)
[2019-04-04 07:21] LABS: CREATININE SERUM 4.7 mg/dL (0.6-1.0)
--- NOTE | 2019-04-04 07:25 | NUR ---
RECEIVED BEDSIDE REPORT FROM RICE FARMWORKER NURSE AT THIS TIME. PATIENT RESTING COMFORTABLY IN BED. NO APPARENT DISTRESS OR DISCOMFORT NOTED. BREATHING EVEN AND UNLABORED. NO RESPIRATORY DISTRESS NOTED. PATIENT DENIES SHORTNESS OF BREATH. NO INDICATION OF CHEST PAIN AT THIS TIME. IV PATENT AND INTACT. ALL QUESTIONS AND CONCERNS ADDRESSED. ALL NEEDS ATTENDED TO. WILL CONTINUE TO MONITOR
[2019-04-04 09:08] VITALS: BP 164/77
--- NOTE | 2019-04-04 10:20 | NUR ---
ALL MORNING MEDICATIONS ADMINISTERED. PATIENT TOLERATED MEDICATION WELL. NO ADVERSE EFFECTS NOTED. ALL NEEDS ATTENDED TO. WILL CONTINUE TO MONITOR
--- NOTE | 2019-04-04 12:15 | NUR ---
PATIENT BLOOD SUGAR 166. 3 UNITS INSULIN REQUIRED (SEE EMAR). ALL NEEDS ATTENDED TO. WILL CONTINUE TO MONITOR
[2019-04-04 13:02] VITALS: BP 149/72
--- NOTE | 2019-04-04 13:17 | NUR ---
Initial Nutrition Assessment: (254T-B) BOWEN ESTRADA 63F Dx: Severe sepsis PMHx: ESRD on HD (MWF), PUD, HTN PSHx: PUD repair Labs: K 5.2 H, Cl 97 L, BUN 69, Cr 4.7 H, Phos 7.2 H Meds: Colace, Humulin, Phoslo, Protonix, Vancomycin, Zofran, Rocephin Diet: Renal PO intake since admission: >75% Ht: 60 in Wt: 79# BMI: 15.4 Bed scale: N/A IBW: 100# %IBW: 79% UBW: Uknown Age: 68 Food Allergies: NKFA Skin: blanchable erythema buttocks w/ hydraguard placed Jb: 17 Edema: None GI: BS hyperactive x4, +C.diff, loose stools Last BM: 04/03 Note (04/04): Visited pt bedside, Divehi speaking, RN helped w/ translation. Pt states has some dizziness, no c/o abd pain at this time. Per RN, HD scheduled today, but no orders have been received yet. Pt has good PO intake. Problem with: N/V/D/C: None Problems with: Chewing: No Swallowing: No Current appetite: Good Recent wt change: N/A %wt change: N/A Vitamin/Supplement use: No Special diet at home: Renal (@ dialysis center) Physical activity: N/A Nutrition education given (specify specific nutrition education and handout given): None given at this time. Food-drug interactions? Education given? None given at this time. Estimated Nutritional Needs Based on current body weight (35.8 kg) Energy: 9975-5235 kcal/day (35-40 kcal/kg for wt gain) Protein: 36-43 g/day (1.0-1.2g/kg for HD) Fluid: Per MD (HD) Nutrition Diagnosis: Malnutrition r/t inadequate energy intake, ESRD r/t HD AEB BMI 15.4 Intervention 1. Add Nepro with Carbsteady QD. Monitor/Evaluate Goal: PO intake at least 75% of estimated needs Monitor: PO intake, Labs, GI function F/U in 2-3 days as high risk 04/06-04/07
--- NOTE | 2019-04-04 13:22 | NUR ---
Recommendations: 1. Add Nepro with Carbsteady QD.
[2019-04-04 16:50] VITALS: BP 144/77
--- NOTE | 2019-04-04 19:11 | NUR ---
DIALYSIS COMPLETED AT THIS TIME. 2L OUT. PATIENT RESTING COMFORTABLY IN BED. NO APPARENT DISTRESS OR DISCOMFORT NOTED. IV PATENT AND INTACT. ALL QUESTIONS AND CONCERNS ADDRESSED. SAFETY PRECAUTIONS MAINTAINED. ALL NEEDS ATTENDED TO. WILL ENDORSE ALL CARE TO VICE PRESIDENT RISK MANAGEMENT NURSE
--- NOTE | 2019-04-04 19:30 | NUR ---
RECIEVED PATIENT AT START OF SHIFT A/O X4, SAPNISH SPEAKING, FAMILY AT BEDSIDE TO TRANSALTE. ON TELE 24 S[place]Y 106. PATIENTS ARMS AND LEGS HAVE TREMORS. DIALYSIS WAS JUST COMPLETED PRIOR TO START OF SHIFT. PATIENT REPORTS 8/10 GENERAL BODY ACHES. NO SOB ON RA, LUNGS CTAB. CENTRAL LINE IN PLACE TO RIGHT CHEST, AV SHUNT RFA HAS BRUIT AND THRILL. IV TO LFA IS SALINE LOCKED AND PATENT. CALL LIGHT WITHIN REACH.
--- NOTE | 2019-04-04 19:37 | NUR ---
TYLENOL GIVEN PER EMAR FOR GENERAL BODY ACHES 05/28.
--- NOTE | 2019-04-04 20:00 | NUR ---
APRESOLINE GIVEN PER EMAR FOR BP OF 170/75. PREVIOUS DOSE WAS HELD DURING DIALYSIS TRANSFUSION. PATIENT REPORTS COMPLETE PAIN RELIEF, 0/10 AND BODY TREMORS HAVE STOPPED.
[2019-04-04 21:00] VITALS: BP 170/75
--- NOTE | 2019-04-05 00:30 | NUR ---
PATIENT IS COMFORTABLE IN BED. NO ACUTE CHANGES. IV TO LFA INFUSING PER EMAR. FAMILY AT BEDSIDE IN SLEEPER CHAIR. CALL LIGHT WITHIN REACH.
--- NOTE | 2019-04-05 01:13 | NUR ---
PATIENT HAD AN EPISOD EOF EMESIS. PILL CAPSULES VISUALIZED IN THE EMESIS. WILL GIVE ZOFRAN PER EMAR.
--- NOTE | 2019-04-05 04:09 | NUR ---
TYLEONOL GIVEN PER EMAR FOR 04/27 GENRAL BODY ACHE.
[2019-04-05 05:54] VITALS: BP 135/62
--- NOTE | 2019-04-05 06:06 | NUR ---
PATIENT GIVEN ZOFRAN BECAUSE PO VANCO MAKES HER NAUSEOUS. DENIES PAIN AT THIS TIME. IV INFUSING WITHOUT ERYTHEMA OR INFILTRATION. CALL LIGHT WITHIN REACH. WILL ENDORSE CARE TO MORNING NURSE.
[2019-04-05 06:27] LABS: CALCIUM 8.8 mg/dL (8.5-10.1); CARBON DIOXIDE 30.4 mmol/L (21-32); CREATININE SERUM 3.1 mg/dL (0.6-1.0); POTASSIUM SERUM 3.7 mmol/L (3.5-5.1)
[2019-04-05 06:37] LABS: BASOPHIL % 0.2 % (0-2); PLATELET COUNT 292 x10^3mcL (130-400)
[2019-04-05 06:53] LABS: RED CELL DISTRIBUTION WIDTH 15.6 % (11.5-14.5)
--- NOTE | 2019-04-05 07:30 | NUR ---
RC'D PT RESTING IN BED WITH NO APPARENT SIGNS OF DISTRESS. A/A/O/X4, SPEECH CLEAR AND APPROPRIATE. DENIES DIZZINESS. ON TELE, DENIES CHEST PAIN/PRESSURE. PALP PULSES, NO EDEMA NOTED. RESPIRATIONS EQUAL AND UNLABORED. LUNGS CTA. ON RA, DENIES SOB. ABDOMEN SOFT AND TENDER. ACTIVE BS. DENIES N/V. INCONTINENT. RCW CATH, WNL. AV SHUNT RFA, WNL. HD M/F. GENERALIZED WEAKNESS. IV PATENT AND INTACT. BED IN LOW POSITION. CALL LIGHT IN REACH. WILL CONTINUE TO MONITOR
--- NOTE | 2019-04-05 08:37 | NUR ---
AM MEDICATIONS GIVEN. PT TOLERATED WELL. RESPIRATIONS EQUAL AND UNLABROED. ON RA, DENIES SOB. PT DENIES EXCESSIVE PAIN AT THIS TIME. BED IN LOW POSITION. CALL LIGHT IN REACH. WILL CONITNUE TO MONITOR
[2019-04-05 08:54] VITALS: BP 146/65
[2019-04-05 08:55] VITALS: BP 113/61; BP 146/65
--- NOTE | 2019-04-05 11:40 | NUR ---
PT RESTING IN BED WTIH NO APPARENT SIGNS OF DISTRESS. RESPIRATIONS EQUAL AND UNLABROED. ON RA, DENIES SOB. PT REQUESTING TYLENOL AT THIS TIME, MEDICATED PER EMAR. BED IN LOW PSOTIION. CALL LIGHT IN REACH. WILL CONT TO MONITOR
[2019-04-05 17:05] VITALS: BP 159/68
--- NOTE | 2019-04-05 18:22 | NUR ---
PT RESTING IN BED WITH NO APPARENT SIGNS OF DISTRESS. ON TELE, DENIES CHEST PAIN/PRESSURE. RESPIRATIONS EQUAL AND UNLABORED. ON RA, DENIES SOB. GENERALIZED WEAKNESS. NO ACUTE SKIN CHANGES NOTED AT THIS TIME. IV PATENT AND INTACT. BED IN LOW POSITION. CALL LIGHT IN REACH. WILL ENDORSE TO CHEMICAL PROCESS OPERATOR RN
--- NOTE | 2019-04-05 19:30 | NUR ---
REC'D PT FROM DAY NURSE. AT BEDSIDE. PT RESTING IN BED. AAOX4, SPEECH CLEAR, FOLLOWS COMMANDS. TELE 24 DENIES CP, DIZZINESS, OR PALPITATIONS. DENIES RESP DISTRESS OR SOB. BREATHING EVEN/UNLABORED ON RA. NO EDEMA NOTED. ABD SOFT/FLAT. DENIES ABD PAIN, TENDERNESS, OR N/V. CONTACT PREC IN PLACE FOR C. DIFF. REPORTS LAST BM WAS TWO DAYS AGO, FORMED. VOIDING FREELY WITH INCONTINENCE. LAST HD 04/04 VIA R UPPER CHEST CATH, 2L OUT. RFA AV SHUNT, BRUIT/THRILL PRESENT. GEN WEAKNESS. USES WALKER. DENIES PAIN OR DISCOMFORT. IV TO LFA FLUSHED AND PATENT, SITE WNL. CALL LIGHT WITHIN REACH, BED AT LOWEST POSITION. WILL CONTINUE TO MONITOR.
[2019-04-05 21:14] VITALS: BP 162/68
--- NOTE | 2019-04-06 00:30 | NUR ---
PT C/O 03/28 BACK PAIN. TYLENOL GIVEN PER ORDER. WILL MONITOR FOR RELIEF.
--- NOTE | 2019-04-06 00:58 | NUR ---
REC'D ORDER FOR NPO D/T POSS PROCEDURE IN AM TO REMOVE DIALYSIS CATH. INFORMED PT AND OF NPO STATUS. PT VERBALIZED UNDERSTANDING.
--- NOTE | 2019-04-06 02:23 | NUR ---
PT RESTING IN BED WITH EYES CLOSED. BREATHING EVEN/UNLABORED ON RA. NO S/SX OF PAIN NOTED. CALL LIGHT WITHIN REACH, BED AT LOWEST POSITION, AT BEDSIDE. WILL CONTINUE TO MONITOR.
[2019-04-06 05:34] VITALS: BP 179/78
--- NOTE | 2019-04-06 06:03 | NUR ---
PT RESTING IN BED WITH EYES CLOSED. EASILY AROUSABLE. NO COMPLAINTS AT THIS TIME. DENIES PAIN. BREATHING EVEN/UNLABORED ON RA. DUE MEDS GIVEN. NPO FOR POSSIBLE UBALDO CATH REMOVAL. PLAN FOR HD TODAY. NO SIGNIFICANT CHANGES DURING SHIFT. CALL LIGHT WITHIN REACH, BED AT LOWEST POSITION. WILL ENDORSE TO DAY NURSE.
[2019-04-06 06:22] LABS: BASOPHIL % 0.2 % (0-2); PLATELET COUNT 322 x10^3mcL (130-400)
[2019-04-06 06:27] LABS: CALCIUM 9.4 mg/dL (8.5-10.1); CARBON DIOXIDE 28.7 mmol/L (21-32); CREATININE SERUM 3.7 mg/dL (0.6-1.0); POTASSIUM SERUM 4.4 mmol/L (3.5-5.1)
[2019-04-06 06:40] VITALS: BP 172/90
[2019-04-06 06:41] LABS: RED CELL DISTRIBUTION WIDTH 16.1 % (11.5-14.5)
--- NOTE | 2019-04-06 07:35 | NUR ---
RECEIVED PT IN NO ACUTE DISTRESS. SLEEPING BUT EASILY AROUSABLE. RESP EVEN AND UNLABORED ON RA. ON CONTACT PRECAUTIONS. R UPPER CHEST UBALDO CATH, DRESSING C/D/I, LAST CHANGED 04/04/19. RFA AV SHUNT, BRUIT/THRILL PRESENT. REPORTS LAST BM FORMED, 04/03/19. GEN WEAKNESS. FALL PRECAUTIONS. ABLE TO REPOSITION SELF IN BED. IV TO LFA, NO REDNESS OR SWELLING TO IV SITE. BED IN LOW POSITION, CALL LIGHT WITHIN REACH. WILL CONTINUE TO MONITOR.
[2019-04-06 08:10] VITALS: BP 164/70
--- NOTE | 2019-04-06 09:46 | NUR ---
HEMODIALYSIS STARTED, CARE SPECIALIST AT BEDSIDE. PT IN NO ACUTE DISTRESS. AAOX4. RESTING IN BED. CALL LIGHT WITHIN REACH. WILL CONTINUE TO MONITOR.
--- NOTE | 2019-04-06 12:30 | NUR ---
HEMODIALYSIS FINISHED, 2L TAKEN OUT. PT IN NO ACUTE DISTRESS. AAOX4. RESTING IN BED. IV TO LFA NO REDNESS OR SWELLING. HOB ELEVATED. CALL LIGHT WITHIN REACH. WILL CONTINUE TO MONITOR.
--- NOTE | 2019-04-06 13:36 | NUR ---
DR. STEIN REMOVED PT'S ASHSPLIT CATHETER AT BEDSIDE, ASSISTED BY NESHA LAWRENCE RN. CATHETER TIP SENT TO LAB ORDERED. PT TOLERATED WELL. WILL CONTINUE TO MONITOR.
[2019-04-06 16:41] VITALS: BP 146/70
--- NOTE | 2019-04-06 18:12 | NUR ---
PT SITTING UP IN BED EATING DINNER. NO ACUTE DISTRESS. RESP EVEN AND UNLABORED ON RA. NO C/O PAIN. IV TO LFA WITH NO REDNESS OR SWELLING. HOB ELEVATED. CONTACT ISOLATION. PT REPORTS NO BM THROUGHOUT SHIFT. BED IN LOW POSITION, CALL LIGHT WITHIN REACH. WILL ENDORSE TO ONCOMING SHIFT.
--- NOTE | 2019-04-06 19:25 | NUR ---
AOX4. MED SURG. LUNGS CLEAR ON RA. BREATHING E/U. PULSES PALPABLE. NO EDEMA. BOWEL SOUNDS ACTIVE. VOIDS. HD ACCESS TO RFA. BLANCHABLE REDNESS NOTED TO BUTTOCKS. DRESSING TO RCW, CDI. SL TO LFA, PATENT. DENIES PAIN. DENIES CHILLS. CONTACT PRECAUTIONS IN PLACE FOR POSITIVE C-DIFF. AT BEDSIDE. BED IN LOWEST POSITION, 2 SIDE RAILS UP, CALL LIGHT IN REACH. INSTRUCTED TO CALL FOR ASSISTANCE.
[2019-04-06 21:04] VITALS: BP 170/74
--- NOTE | 2019-04-07 01:25 | NUR ---
RESTING IN BED WITH EYES CLOSED. BREATHING E/U. NO ACUTE DISTRESS NOTED. AT BEDSIDE. WILL CONTINUE TO MONITOR.
[2019-04-07 05:58] VITALS: BP 180/80
[2019-04-07 06:31] LABS: BASOPHIL % 0.1 % (0-2); PLATELET COUNT 374 x10^3mcL (130-400)
[2019-04-07 06:37] LABS: RED CELL DISTRIBUTION WIDTH 15.3 % (11.5-14.5)
--- NOTE | 2019-04-07 06:43 | NUR ---
PT HAD 1 EPISODE OF LOOSE BM. NO ACUTE CHANGES. NO ACUTE DISTRESS NOTED. WILL ENDORSE TO ONCOMING RN.
[2019-04-07 07:01] LABS: CALCIUM 9.3 mg/dL (8.5-10.1); CARBON DIOXIDE 24.2 mmol/L (21-32); CREATININE SERUM 2.5 mg/dL (0.6-1.0); POTASSIUM SERUM 3.8 mmol/L (3.5-5.1)
--- NOTE | 2019-04-07 07:24 | NUR ---
RECEIVED PT RESTING IN BED. NO ACUTE DISTRESS. AAOX4. RESTING IN BED. BREATHING EVEN AND UNLABORED ON RA. NO C/O PAIN. CONTACT ISOLATION. PT WITH LOOSE BM EARLY AM TODAY. IV TO LFA, NO REDNESS OR SWELLING. RFA AV SHUNT, BRUITH/THRILL PRESENT. BED IN LOW POSITION, CALL LIGHT WITHIN REACH. WILL CONTINUE TO MONITOR.
[2019-04-07 09:05] VITALS: BP 178/79
--- NOTE | 2019-04-07 11:17 | NUR ---
ASSISTED PT TO SIT UP IN CHAIR. PT IN NO ACUTE DISTRESS. NO C/O PAIN. CALL LIGHT WITHIN REACH. WILL CONTINUE TO MONITOR.
--- NOTE | 2019-04-07 12:05 | NUR ---
1. Recommend continuing current diet w/ ONS Nepro.
--- NOTE | 2019-04-07 12:05 | NUR ---
Follow-up Nutrition Assessment: 254/B BOWEN ESTRADA FU HR Dx: Severe sepsis PMHx: ESRD on HD (MWF), PUD, HTN Labs: (04/07) NA 135L, BG 122H, BUN 23H, CREAT 2.5H, WBC 11.6H Meds: Colace, D10%, humulin, lactinex, Levaquin, phoslo, zofran Diet: cardiac, CCHO, Renal PO Intake: (04/06) NPO, (04/04) 100% Weights: (04/07) 34 kg, (04/06) 39 kg, (04/04) 35.8 kg - weight fluctuation maybe d/t HD Skin: blanchable redness to buttocks Jb: 18 I/Os: 990/2000 (-1010) Edema: none GI: Last BM: 04/07 RDN Visit (04/07): Patient was sitting on a chair by her bed and was alert and oriented. Patient said that her appetite is "all right" and does not have any N/V/D/C at this time. Patient said that she consumes Nepro ONS and had breakfast this morning. Per progress note (04/07) Permacath removed by Dr. Mark yesterday, reordered blood cx x2 and also cath cx. TMA with HIMANSHU is scheduled by podiatry on Thursday, March, . Estimated Nutritional Needs based on current body weight (35.8 kg) Energy: 3242-6263 kcal/d (35-40 kcal/kg) Protein: 43-54 g/d (1.2-1.5 g/kg) Fluid: per MD Nutrition Diagnosis 1. Malnutrition related to inadequate energy intake, ESRD as evidenced by BMI 15.4 kg/m2 (improving) Intervention 1. Recommend continuing current diet w/ ONS Nepro. Monitor/Evaluate Goal: Have pt meet at least 75% of estimated needs Monitor: PO intake, Labs, GI function F/U in 3-5 days as moderate risk 04/10-
--- NOTE | 2019-04-07 14:41 | NUR ---
SPOKE WITH DIALYSIS REP TO CONFIRM PT'S DIALYSIS SCHEDULED FOR TOMORROW 04/07/19.
[2019-04-07 17:11] VITALS: BP 156/74
--- NOTE | 2019-04-07 18:14 | NUR ---
PT SITTING UP IN BED WATCHING TV. NO ACUTE DISTRESS. AAOX4. RESP EVEN AND UNLABORED ON RA. NO C/O PAIN. REPORTS 2X LOOSE STOOLS THIS SHIFT. IV TO LFA, NO REDNESS OR SWELLING. CONTACT PRECAUTIONS. WALKER AT BEDSIDE. BED IN LOW POSITION, CALL LIGHT WITHIN REACH. WILL ENDORSE TO ONCOMING SHIFT.
--- NOTE | 2019-04-07 19:20 | NUR ---
AOX4. MED SURG. LUNGS CLEAR ON RA. BREATHING E/U. PULSES PALPABLE. NO EDEMA. BOWEL SOUNDS ACTIVE. HAD LOOSE BM AT THIS TIME. VOIDS. HD ACCESS TO RFA. BLANCHABLE REDNESS NOTED TO BUTTOCKS. DRESSING TO RCW, CDI. SL TO LFA, PATENT. DENIES PAIN. DENIES CHILLS. CONTACT PRECAUTIONS IN PLACE FOR POSITIVE C-DIFF. AT BEDSIDE. BED IN LOWEST POSITION, 2 SIDE RAILS UP, CALL LIGHT IN REACH. INSTRUCTED TO CALL FOR ASSISTANCE.
[2019-04-07 20:37] VITALS: BP 142/86
[2019-04-07 21:26] VITALS: BP 164/76
[2019-04-08 00:40] VITALS: BP 146/78
--- NOTE | 2019-04-08 02:10 | NUR ---
RESTING IN BED WITH EYES CLOSED. BREATHING E/U. NO ACUTE DISTRESS NOTED. AT BEDSIDE. WILL CONTINUE TO MONITOR.
--- NOTE | 2019-04-08 05:53 | NUR ---
PT HAD 2 EPISODES OF LOOSE BM OVERNIGHT. NO C/O CHILLS. NO ACUTE DISTRESS NOTED. NO ACUTE CHANGES. WILL ENDORSE TO ONCOMING RN.
[2019-04-08 06:07] VITALS: BP 118/60
[2019-04-08 06:08] VITALS: BP 118/60
[2019-04-08 06:12] LABS: BASOPHIL % 0.2 % (0-2); PLATELET COUNT 391 x10^3mcL (130-400)
[2019-04-08 06:36] LABS: RED CELL DISTRIBUTION WIDTH 15.7 % (11.5-14.5)
[2019-04-08 06:37] LABS: CALCIUM 9.2 mg/dL (8.5-10.1); CARBON DIOXIDE 24.8 mmol/L (21-32); CREATININE SERUM 3.4 mg/dL (0.6-1.0); POTASSIUM SERUM 4.1 mmol/L (3.5-5.1)
--- NOTE | 2019-04-08 07:02 | NUR ---
RECEIVED REPORT FROM BHARTI COLE. PT RESTING COMFRATBLY IN BED. SALINE LOCK TO LFA IS PATENT AND INTACT. NO REDENSS OR PAIN. PT ON ROOMAIR. NO CO SOB AND NO DISTRESS NOTED. SHUNT NOTED TO RFA. PT TO HAVE DIALYSIS TODAY. DRESSING NOTED TO RT UPPER CHEST FROM CATH REMOVAL IS CDI. ALL QUESTIONS AND CONCERNS ADDRESSED.
[2019-04-08 09:35] VITALS: BP 111/53
--- NOTE | 2019-04-08 11:19 | NUR ---
BOILER FIREMAN SPOKE WITH DR LUONG TO CONFIRM USE OF RT ARM FISTULA. DR LUONG OK TO USE.
--- NOTE | 2019-04-08 11:49 | NUR ---
IN TO ADMINISTER MEDICATION AND CHECK BLOOD GLUCOSE. GLUCOSE IS 149 NO ACTION REQUIRED.
[2019-04-08] MEDS ORDERED: COR6 PO (13:51)
[2019-04-08] MEDS ORDERED: LEVOFLOXACIN500 M1 PO (13:52)
[2019-04-08] MEDS ORDERED: NOVAPLUS VANCO125 MG PO (13:53)
[2019-04-08] MEDS ORDERED: VAN500I IV (13:54)
[2019-04-08] MEDS ORDERED: LAC PO (13:55)
[2019-04-08] MEDS ORDERED: PRO60 PO (13:57)
--- NOTE | 2019-04-08 14:31 | NUR ---
DIALYSIS COMPLETE. PT RESTING COMFORTABLY IN BED ALL NEEDS MET. 1.4L OUT AND PATIENT TOLERATED IT WELL.
[2019-04-08 14:35] VITALS: BP 111/53
--- NOTE | 2019-04-08 15:46 | NUR ---
CONFIRMED DISCHARGE WITH DR POWELL. STATED THAT PATIENT WILL NOT HAVE PERMACATH PLACED SHE HAS FUNCTIONING AV FISTULA. OK TO DISCHARGE.
--- NOTE | 2019-04-08 15:49 | NUR ---
IN TO SEE PATIENT AND DISCUSS DIACHARGE. PT VERBALIZED THAT SHE HAS SOMEONE ABLE TO PICK HER UP AT 17:00. INFORMED PATIENT THAT I WILL BE IN SHORTLY TO GO OVER DISCHARGE PAPERWORK AND SIGNATURES.
[2019-04-08 17:20] VITALS: BP 108/55
--- NOTE | 2019-04-08 18:17 | NUR ---
IN TO DISCUSS WITH PATIENT AND DISCHARGE INSTRUCTIONS. PT IS STABLE FOR DIACHARGE PER MD. BOT PT AND VERBALIZED UNDERSTANDING AND AGREEE TO FOLLOW UP WITH PCP. PT TO CHANGE CLOTHES AND CALL WHEN SHE IS READY TO BE TAKEN DOWNSTAIRS.
== END 2019-04-08 19:05 | disposition home or self-care (01) | DRG 314 ==
LOC: ED 16:50 → MU 22:03 → DU 22:03 → MU 04-06 17:58
PROVIDERS: General Practice; Specialist; ADMIT Internal Medicine
PROC: 02PY33Z Removal of Infusion Device from Great Vessel, Percutaneous Approach (ICD-10-PCS; principal; 2019-04-06)
DX: T82.7XXA Infection and inflammatory reaction due to other cardiac and vascular devices, implants and grafts, initial encounter (principal); N17.0 Acute kidney failure with tubular necrosis; E43 Unspecified severe protein-calorie malnutrition; N18.6 End stage renal disease; R65.20 Severe sepsis without septic shock; A41.02 Sepsis due to Methicillin resistant Staphylococcus aureus; A41.52 Sepsis due to Pseudomonas; I12.0 Hypertensive chronic kidney disease with stage 5 chronic kidney disease or end stage renal disease; N39.0 Urinary tract infection, site not specified; Z68.1 Body mass index [BMI] 19.9 or less, adult; A04.72 Enterocolitis due to Clostridium difficile, not specified as recurrent; E78.5 Hyperlipidemia, unspecified; E02 Subclinical iodine-deficiency hypothyroidism; D63.1 Anemia in chronic kidney disease; Y83.8 Other surgical procedures as the cause of abnormal reaction of the patient, or of later complication, without mention of misadventure at the time of the procedure; E11.22 Type 2 diabetes mellitus with diabetic chronic kidney disease; Z99.2 Dependence on renal dialysis; Z86.73 Personal history of transient ischemic attack (TIA), and cerebral infarction without residual deficits; Z87.11 Personal history of peptic ulcer disease; Z79.899 Other long term (current) drug therapy; Z90.710 Acquired absence of both cervix and uterus; Y92.89 Other specified places as the place of occurrence of the external cause
CPT/HCPCS: 82962; 83880; 84439; 87046; 87046-59; 87804; G0378; J0360; J0696; J1644; J1956; J2001; J2405; J2543; J3370; J7030

== ENCOUNTER 2019-06-09 04:21 | Inpatient (IN) | payer BC, OTHER ==
[~2019-06-09] VITALS: Ht 152.4 cm; Wt 86.2 kg
[~2019-06-09 04:21] MED LIST changes: +COR3 PO; +COR6 PO; +LEVOFLOXACIN500 M1 PO; +PRO60 PO; +VAN500I IV
--- NOTE | 2019-06-09 04:38 | NUR ---
PT. PRESENTS TO ED FOR LOWER BACK PAIN OFF AN ON [id number]. WAS SEEN IN ED RECENTLY FOR SAME PAIN AND HAD FULL WORK UP DONE. WAS TOLD SHE HAS ARTHRITIS AND TO DO EXERCISE AND TAKE TYLENOLO. PT. REPORTS PAIN IS 10/10 AT THIS TIME. HX OF RENAL FAILURE, HAD DIAYLSIS THURSDAY AND FRIDAYS. ALSO REPORTS HX OF CHRONIC BACK PAIN. PT. AAOX4, TALKING AND RESPONDING APPROPRIATELY, BREATHING E/U. NAD. FAMILY AT BEDSIDE. DR. NORRIS AT BEDSIDE FOR MSE
--- NOTE | 2019-06-09 05:13 | NUR ---
PT. MEDICATED WITH MORPHINE PER EMAR. REPORTS SHE IS PAIN HAS SUBSIDED TO 8/10. CALL LIGHT IN REACH. AT BEDSIDE. WILL CONTINUE TO MONITOR.
[2019-06-09 05:15] LABS: BASOPHIL % 0.6 % (0-2)
--- NOTE | 2019-06-09 05:18 | NUR ---
PT. TAKEN TO XRAY VIA PATRICIA
[2019-06-09 05:21] LABS: PLATELET COUNT 404 x10^3mcL (130-400); RED CELL DISTRIBUTION WIDTH 16.3 % (11.5-14.5)
--- NOTE | 2019-06-09 05:40 | NUR ---
PT. UP TO RESTROOM TO LEAVE URINE SAMPLE. STATES SHE STILL MAKES URINE BUT IS UNABLE TO VOID AT THIS TIME. STRAIGHT CATH DONE FOR URINE SAMPLE.
[2019-06-09 05:54] LABS: BILIRUBIN TOTAL 0.3 mg/dL (0.20-1.00); CALCIUM 8.6 mg/dL (8.5-10.1)
[2019-06-09 05:55] LABS: ALBUMIN 2.9 g/dL (3.4-5.0); TOTAL PROTEIN, SERUM 8.4 g/dL (6.4-8.2)
[2019-06-09 05:57] LABS: CREATININE SERUM 5.8 mg/dL (0.6-1.0)
--- NOTE | 2019-06-09 06:33 | NUR ---
PT. LAYING ON GURNEY IN POSITION OF COMFORT BREATHING E/U. NAD. STATES SHE TAKE MEDS FOR DIABETES AND DEPRESSION BUT HE DOES NOT KNOW THE DOSE.
--- NOTE | 2019-06-09 06:34 | NUR ---
REPORT GIVEN TO AYSE COLE FOR FURTHER CARE OF PATIENT. ALL QUESTIONS AND CONCERNS ADDRESSED.
--- NOTE | 2019-06-09 06:49 | NUR ---
SPOKE TO PHARMACY AND THEY STATED KAYEXALATE IS ON BACK ORDER. STATES VALTASSA IS THE SECOND OPTION TO TREAT HYPERKALEMIA. SPOKE TO RESIDENT BOARDING HOUSE COOK AND INFORMED HER OF BACK ORDER OF KAYEXALATE, STATES SHE WILL PLACE OREDER FOR VELTASSA.
--- NOTE | 2019-06-09 07:07 | NUR ---
PT. MEDICATED WTIH VELTASSA PO. TOLERATED WELL.
--- NOTE | 2019-06-09 07:13 | NUR ---
ADMIT ORDERS STATES PT. IS GOING TO [facility]. RESIDENT FORM SETTER STEEL PAN FORMS DR. TORRES MADE AWARE AND STATES SHE WILL CHANGE ORDERS TO TELE. INFORMED JULIO COLE OF PENDING CHANGE IN ORDER AND PENDING TRANSFER TO TELE.
--- NOTE | 2019-06-09 07:26 | NUR ---
RECIEVED PT FROM ER VIA GURNEY. AT BEDSIDE. PT STABLE WITH NO C/O DISTRESS A/O X4, AT TIMES CONFUSED. TELE #14 CONNECTED TO PT, DENIES ANY CP OR PRESSURE AT THIS TIME. R AV SHUNT, CDI AND THRILL/BRUIT HEARD. SKIN CDI. IV TO LEFT HAND 22 GUAGE INTACT AND PATENT WITH NO REDNESS OR INFLAMMATION. SAFETY PRECAUTIONS IN PLACE, CALL LIGHT WITHIN REACH, WILL MONITOR.
[2019-06-09 07:41] LABS: CHOLESTEROL/HDL RATIO 3.6
[2019-06-09 07:43] VITALS: BP 106/53
[2019-06-09 07:50] LABS: FREE THYROXINE INDEX 2.8 ug/dL (1.4-4.5); T4(THYROXINE) 8.3 ug/dL (4.7-13.3)
[2019-06-09 10:39] LABS: T3 TOTAL 0.58 ng/mL
--- NOTE | 2019-06-09 11:00 | NUR ---
PT STABLE RESTING IN BED. NO C/O PAIN, DISTRESS, OR SOB. AT BEDSIDE. SAFETY PRECAUTIONS IN PLACE, CALL LIGHT WITHIN REACH, WILL MONITOR.
[2019-06-09 11:56] VITALS: BP 140/67
--- NOTE | 2019-06-09 13:15 | NUR ---
ECHO PENDING. PT HAD PREVIOUS ECHO DONE IN MARCH 2019. COPY OF REPORT PLACED IN PAPER CHART.
--- NOTE | 2019-06-09 13:54 | NUR ---
CONSENT FOR HD RECIEVED FROM PT AND PUT IN CHART.
[2019-06-09] MEDS ORDERED: RENVELA800 M1 PO (14:02)
[2019-06-09] MEDS ORDERED: LEVOTHYROXINE0.05 M2 PO (14:02)
--- NOTE | 2019-06-09 14:20 | NUR ---
HD STARTED. CONSENT SIGNED AND IN FOLDER.
[2019-06-09 14:31] LABS: CALCIUM 8.6 mg/dL (8.5-10.1); CARBON DIOXIDE 24.2 mmol/L (21-32)
[2019-06-09 14:38] LABS: POTASSIUM SERUM 6.7 mmol/L (3.5-5.1)
--- NOTE | 2019-06-09 14:42 | NUR ---
DR NOLASCO NOTIFIED THAT PT POTASSIUM= 6.7, B/C= 105/60. WILL CARRY OUT ANY NEW ORDERS.
--- NOTE | 2019-06-09 16:20 | NUR ---
PT C/O 05/28 BACKPAIN, MEDICATED WITH NORCO PER EMAR, WILL REASSESS.
[2019-06-09 17:03] VITALS: BP 167/68
--- NOTE | 2019-06-09 17:20 | NUR ---
PT TOLERATED HD WELL. 3 LITERS OUTPUT.
--- NOTE | 2019-06-09 18:22 | NUR ---
PT STABLE AT THIS TIME. NO C/O PAIN, DISTRESS, OR SOB. TELE#14 CONNECTED TO PT, DENIES ANY CP OR PRESSURE. IV IN LEFT HAND INTACT AND PATENT WITH NO REDNESS OR INFLAMMATION. AT BEDSIDE. ALL CARES TOLERATED WELL, SAFETY PRECAUTIONS IN PLACE, CALL LIGHT WITHIN REACH, WILL ENDORSE TO NIGHT NURSE.
--- NOTE | 2019-06-09 19:30 | NUR ---
PT RECIEVED FROM DAY NURSE. PT RESTING IN BED COMFORTABLY AT THIS TIME. AT BEDSIDE TO TRANSLATE. A/O X4, CONFUSED AT TIME PER . TELE 14, NSR AT THIS TIME. RFA AV, BRUIT AND THRILL PRESENT. BREATHIGN EVEN AND UNLABORED ON RA, SPO2 95%. ABD SOFT AND ROUND. DENIES PAIN TO PALPATION. HD PT MWF. GENERALIZED WEAKNESS. AMBULATES WITH WALKER AT BEDSIDE. DENIES PAIN AT THIS TIME. LH 22G, CDI. BED AT LOWEST POSITION. CALL LIGHT WITHIN REACH. WILL CONTINUE TO MONITOR.
[2019-06-09 22:31] VITALS: BP 204/89
[2019-06-09 22:56] VITALS: BP 206/85
--- NOTE | 2019-06-09 22:56 | NUR ---
PT BP, 206/84. NOTIFIIED DR. BARRIENTOS. AWAITING ORDERS.
[2019-06-10] VITALS (9 sets, daily range): BP systolic 130–191; BP diastolic 59–78
--- NOTE | 2019-06-10 | NUR ---
PT RESTING I BED COMFORTABLY AT THIS TIME. NO S/S OF PAIN OR DISTRESS NOTED. BREATHING EVEN AND UNLABORED ON RA. BED AT LOWEST POSITION. CALL LIGHT WITHIN REACH. WILL CONTINUE TO MONITOR.
--- NOTE | 2019-06-10 00:24 | NUR ---
MEDICATED PT WITH PRN HYDRALOZINE. PT BP CHECKED 45 MINS AFTER INVENTION. BP NOW 158/72.
--- NOTE | 2019-06-10 04:33 | NUR ---
PT COMPLAINING OF 10/10 PAIN IN LOWER BACK. MEDICATED WTIH PRN NORCO. WILL CONTINUE TO MONITOR. PT BP 191/76. MEDICATED WITH PRN HYDRALAZINE. WILL CONTINUE TO MONITOR.
--- NOTE | 2019-06-10 06:42 | NUR ---
PT BP RECHECKED. 151/66.
--- NOTE | 2019-06-10 06:49 | NUR ---
PT RESTING IN BED COMFORTABLY AT THIS TIME. DENIES PAIN OR DISTRESS. ALL NEEDS MET THIS SHIFT. BED AT LOWEST POSITION. CALL LIGHT WITHIN REACH. WILL ENDORSE TO DAY NURSE.
[2019-06-10 07:12] LABS: BASOPHIL % 0.3 % (0-2); PLATELET COUNT 383 x10^3mcL (130-400)
--- NOTE | 2019-06-10 07:19 | NUR ---
RECEIVED PT FROM SOURCE INSPECTOR NURSE. PT IN BED SLEEPING, AROUSABLE, RESP E/U ON 2L NC. NO ACUTE DISTRESS NOTED. ON TELE 14 SHOWING NSR, HR: 84. SALINE LOCKED TO L HAND W/ NO ERYTHEMA OR EDEMA. BED IN LOWEST POSITION AND CALL LIGHT WITHIN REACH. WILL CONTINUE TO MONITOR.
[2019-06-10 07:28] LABS: CALCIUM 8.6 mg/dL (8.5-10.1); CARBON DIOXIDE 25.8 mmol/L (21-32); MAGNESIUM 2.3 mg/dL (1.8-2.4); PHOSPHOROUS 5.7 mg/dL (2.5-4.9); POTASSIUM SERUM 5.1 mmol/L (3.5-5.1)
[2019-06-10 08:21] LABS: CREATININE SERUM 4.6 mg/dL (0.6-1.0)
[2019-06-10 09:07] LABS: RED CELL DISTRIBUTION WIDTH 15.4 % (11.5-14.5)
--- NOTE | 2019-06-10 11:53 | NUR ---
Initial Nutrition Assessment: (256T-B) BOWEN ESTRADA 63F Dx: Hyperkalemia, back pain, ESRD PMHx: ESRD, DM, PUD, HTN, CVA, CHF, Hypothyroidism PSHx: Cholecystectomy Labs: A1c 7.1 H, BUN 67 H, Cr 4.6 H, Alb 2.9 L, Phos 5.7 H, Trgi 180 H, BNP 875.81 H, TSH 6.99 H, PTT 30.5 H Meds: Adalat, Coreg, Hydralazine, Renagel, Synthroid Diet: Renal, Cardiac/CCHO PO intake since admission: 85% Ht: 60in Wt: 90# BMI: 17.6 Bed scale: Unable to assess, pt not in room IBW: 100# %IBW: 90% UBW: Unable to assess, pt not in room Age: 63 Food Allergies: NKFA, per previous note/admission Skin: Jb: 21 Edema: none noted GI: Last BM: 06/07 Note (06/10): Visited pt for primary Dx Hyperkalemia, back pain, ESRD on HD ([facility]). Noted pt's wt is ~90#, per wt log. Pt not in room at this time. Spoke w/ RN in [facility], stated pt may be walking around unit, may not be currently dialyzed at this time. Noted pt encouraged to ambulate r/t DVT prophylaxis, per H&P. Will follow up w/ pt as high risk. Problem with N/V/D/C: Unable to assess, pt not in room Problems with: Chewing: Unable to assess, pt not in room Swallowing: Unable to assess, pt not in room Current appetite: Unable to assess, pt not in room Recent wt change: Unable to assess, pt not in room %wt change: Unable to assess, pt not in room Vitamin/Supplement use: Unable to assess, pt not in room Special diet at home: Renal from [facility] Physical activity: N/A Nutrition education given (specify specific nutrition education and handout given): None given at this time. Food-drug interactions? Education given? None given at this time. Estimated Nutritional Needs Based on current body weight (40.9 kg) Energy: 4742-0352 kcal/day (35-40 kcal/kg for wt gain) Protein: 41-49 g/day (1.0-1.2 g/kg for ESRD on HD) Fluid: Per MD (ESRD on HD) Nutrition Diagnosis: Malnutrition r/t ESRD on HD AEB BMI 17.6 Intervention 1. Continue current Renal, Cardiac/CCHO diet order. Monitor/Evaluate Goal: PO intake at least 75% of estimated needs Monitor: PO intake, Labs, GI function F/U in 2-3 days as high risk 06/12-06/13
--- NOTE | 2019-06-10 11:54 | NUR ---
Recommendation(s): 1. Continue current Renal, Cardiac/CCHO diet order.
--- NOTE | 2019-06-10 17:45 | NUR ---
PT RESTING IN BED, AOX4, RESP E/U ON 1L NC. C/O HEADACHE RATED 8/10, MEDICATED ORDERED PER EMAR. DENIES N/V. COMFORT MEASURES IMPLEMNETED. BED IN LOWEST POSITION AND CALL LIGHT WITHIN REACH. WILL ENDORSE TO ONCOMING NURSE.
--- NOTE | 2019-06-10 19:30 | NUR ---
RECIEVED PT IN NO ACUTE DISTRESS. AOX4. TELE #14, SR. BREATHING E/U. AV SHUNT TO RFA. SL TO LH, PATENT. DENIES PAIN. AT BEDSIDE. BED IN LOWEST POSITION, 2 SIDE RAILS UP, CALL LIGHT IN REACH. INSTRUCTED TO CALL FOR ASSISTANCE.
--- NOTE | 2019-06-11 02:10 | NUR ---
RESTING IN BED WITH EYES CLOSED. BREATHING E/U. NO ACUTE DISTRESS NOTED. WILL CONTINUE TO MONITOR.
[2019-06-11 05:54] VITALS: BP 175/74
--- NOTE | 2019-06-11 06:11 | NUR ---
PT BACK PAIN WELL CONTROLLED BY TYLENOL X 1 OVERNIGHT. NO OTHER COMPLAINTS. NO ACUTE CHANGES. WILL ENDORSE TO ONCOMING RN.
[2019-06-11 06:27] LABS: BASOPHIL % 0.6 % (0-2); PLATELET COUNT 384 x10^3mcL (130-400)
[2019-06-11 06:50] LABS: CALCIUM 8.6 mg/dL (8.5-10.1); CARBON DIOXIDE 23.7 mmol/L (21-32)
[2019-06-11 06:57] LABS: RED CELL DISTRIBUTION WIDTH 15.4 % (11.5-14.5)
[2019-06-11 07:25] LABS: CREATININE SERUM 5.5 mg/dL (0.6-1.0); POTASSIUM SERUM 6.2 mmol/L (3.5-5.1)
--- NOTE | 2019-06-11 07:27 | NUR ---
HANDOFF REPORT RECEIVED FROM RN BHARTI. PATIENT AWAKE AND DENIES ANY PAIN OR DYSPNEA. SPOUSE AT BEDSIDE. INDTRUCTED TO CALL RN FOR ASSIST. BED LOW LOCKED AND ALARM ON.
[2019-06-11 08:32] VITALS: BP 161/67
--- NOTE | 2019-06-11 10:30 | NUR ---
ASSISTED OOB TO CHAIR BY . PATIENT SMILING. NO COMPLAINTS.
--- NOTE | 2019-06-11 11:26 | NUR ---
[facility]
--- NOTE | 2019-06-11 13:19 | NUR ---
UP IN A CHAIR. FRIEND VISITING AT THIS TIME. NO COMPLAINTS.
[2019-06-11 13:21] VITALS: BP 136/64
--- NOTE | 2019-06-11 15:19 | NUR ---
HEMODIALYSIS IN PROGRESS.
--- NOTE | 2019-06-11 16:41 | NUR ---
PHYSICAL THERAPY DAILY NOTES CO-SIGN All documentation done by the Car Painter for 06/11/19 has been reviewed. I agree with the documentation. Reviewed/Co-Signed by: Jannette Prieto PT Documentation Done by:JANET HUTCHINS PTA
[2019-06-11 16:58] VITALS: BP 124/67
--- NOTE | 2019-06-11 17:09 | NUR ---
HD STILL IN PROGRESS. PATIENT TAKING A NAP. NOT IN ANY DISTRESS.
--- NOTE | 2019-06-11 18:33 | NUR ---
HD COMPLETED. 1.5 LITER OUT PER CARE ANALYST. PATIENT DENIES ANY SOB OR DISCOMFORT.
--- NOTE | 2019-06-11 19:27 | NUR ---
HANDOFF REPORT GIVEN TO RN BHARTI. PATIENT STILL AWAKE IN BED. NOT IN ANY DISTRESS. SISTER AT BEDSIDE AT THIS TIME.
--- NOTE | 2019-06-11 19:30 | NUR ---
RECIEVED PT IN NO ACUTE DISTRESS. AOX4. TELE #14, SR. BREATHING E/U. AV SHUNT TO RFA. SL TO LH, PATENT. DENIES PAIN. FAMILY MEMBER AT BEDSIDE. BED IN LOWEST POSITION, 2 SIDE RAILS UP, CALL LIGHT IN REACH. INSTRUCTED TO CALL FOR ASSISTANCE.
[2019-06-11 19:46] VITALS: BP 139/61
[2019-06-12] VITALS (9 sets, daily range): BP systolic 130–233; BP diastolic 57–103
--- NOTE | 2019-06-12 02:10 | NUR ---
RESTING IN BED WITH EYES CLOSED. BREATHING E/U. NO ACUTE DISTRESS NOTED. WILL CONTINUE TO MONITOR.
[2019-06-12 06:37] LABS: BASOPHIL % 0.2 % (0-2); PLATELET COUNT 360 x10^3mcL (130-400)
--- NOTE | 2019-06-12 06:49 | NUR ---
BACK PAIN WELL CONTROLLED BY NORCO PRN. NO ACUTE DISTRESS NOTED. NO ACUTE CHANGES. WILL ENDORSE TO ONCOMING RN.
[2019-06-12 07:00] LABS: CALCIUM 8.2 mg/dL (8.5-10.1); CARBON DIOXIDE 28.1 mmol/L (21-32); POTASSIUM SERUM 4.3 mmol/L (3.5-5.1)
[2019-06-12 07:03] LABS: CREATININE SERUM 4.1 mg/dL (0.6-1.0)
[2019-06-12 07:15] LABS: RED CELL DISTRIBUTION WIDTH 14.9 % (11.5-14.5)
--- NOTE | 2019-06-12 07:20 | NUR ---
RECEIVED PT FROM JANEY RN. PT AA/OX4. SPEAKS PORTUGUESE. NO S/S OF ACUTE DISTRESS. DENIES PAIN AT THIS TIME. NO SOB ON ROOM AIR. RR EVEN/UNLABORED. NO N/V. NO CHEST PAIN. CALM/COOPERATIVE. INSTRUCTED TO USE CALL LIGHT TO CALL FOR ASSISTANCE PRN. AV SHUNT TO RFA, EXTREMITY PRECAUTIONS IN PLACE. +THRILL/BRUIT. VERBALIZED UNDERSTANDING. FALL PREC IN PLACE. BED IN LOW POSITION. SIDE RAILS UP X2. WILL CONTINUE TO MONITOR. IV WNL TO LFA, SALINE LOCKED. SITE WNL.
--- NOTE | 2019-06-12 12:42 | NUR ---
PT BEING DISCHARGED TO HOME. AWAKE, ALERT, ORIENTED X4. SPEAKS AUSTRIAN. NO S/S OF ACUTE DISTRESS. DENIES PAIN AT THIS TIME. NO CHEST PAIN. NO SOB ON ROOM AIR. NO CABRERA. NO DIZZINESS. VS STABLE. CALM/COOPERATIVE. AV SHUNT TO RUE, +THRILL/BRUIT. DISCHARGE EDUCATION PROVIDED TO PATIENT AND FAMILY MEMBER. INSTRUCTED TO FOLLOW UP WITH PCP AT UPCOMING APPT. VERBALIZED UNDERSTANDING. IV REMOVED FROM LFA, CATHETER IN TACT. PRESSURE APPLIED. NSR ON TELE, TELE REMOVED. NO SOB ON ROOM AIR. SIDE RAILS X2. PT EATING LUNCH AT THIS TIME. FALL PRECAUTIONS IN PLACE. WILL CONTINUE TO MONITOR.
--- NOTE | 2019-06-12 13:43 | NUR ---
LATE ENTRY BP 233/103, PT NAUSEA/VOMITING IN RESTROOM, ASSISTED BACK TO BED. COMPLAINT OF MILD DIZZINESS. IV INSERTED TO RFA, 22 GAUGE. PATENT. IV BP MEDICATION GIVEN SEE DEC. NSR ON TELE 14, HR 93. DENIES CHEST PAIN. FACE SYMMETRICAL. SPEECH CLEAR. AA/OX4. DENIES CABRERA. PT LAYING IN BED. NSR ON TELE AFTER IV BP MED. NO SOB ON ROOM AIR. WILL NOTIFY MACHINE PLUG SHAPER HARLEY.
--- NOTE | 2019-06-12 13:58 | NUR ---
TOBACCO PRIZER HARLEY AWARE. PER TOBACCO PRIZER DISCHARGE ON HOLD. BP TRENDING DOWN. WILL CONTINUE TO MONITOR.
--- NOTE | 2019-06-12 16:42 | NUR ---
BP 132/61, NO CABRERA. NO DIZZINESS. NO CHEST PAIN. NO N/V. NO SOB ON ROOM AIR. NO S/S OF ACUTE DISTRESS. AA/OX4 LAYING IN BED. IV WNL TO LFA, SALINE LOCKED. PT CALM/COOPERATIVE. BED IN LOW POSITION. CALL LIGHT WITHIN REACH. WILL CONTINUE TO MONITOR.
--- NOTE | 2019-06-12 18:21 | NUR ---
PT LAYING IN BED. VS STABLE. DENIES CHEST PAIN. NO SOB ON ROOM AIR. NO N/V AT THIS TIME. NO CABRERA. NO DIZZINESS. IV WNL TO LFA, SALINE LOCKED. TOLERATING RENAL DIET WELL. CALM/COOPERATIVE. FAMILY MEMBER AT BEDSIDE. BED IN LOW POSITION. CALL LIGHT WITHIN REACH. SIDE RAILS UP X2. FALL PRECAUTIONS IN PLACE. WILL ENDORSE TO ONCOMING SHIFT.
--- NOTE | 2019-06-12 19:29 | NUR ---
RECEIVED PT FROM PREVIOUS SHIFT. PT A/OX4. DENIES PAIN. DENIES SOB ON RA. IV PATENT, SALINE LOCKED. CALL LIGHT WITHIN REACH, BED IN LOW POSITION. FAMILY AT BEDSIDE. WILL CONTINUE TO MONITOR.
[2019-06-13] VITALS (7 sets, daily range): BP systolic 103–202; BP diastolic 49–80
--- NOTE | 2019-06-13 03:19 | NUR ---
PT RESTING IN NO ACUTE DISTRESS. RR EVEN AND UNLABORED. CALL LIGHT WITHIN REACH, BED IN LOW POSITION. WILL CONTINUE TO MONITOR.
--- NOTE | 2019-06-13 07:53 | NUR ---
AT 0715 - RECEIVED PATIENT FROM NIGHT NURSE. AWAKE, ALERT, APPEARS ORIENTED. FAMILY MEMBER AT BEDSIDE. RESPIRATIONS REGULAR. PLAN FOR DC HOME AFTER DIALYSIS TODAY. AT 0745 - SAT UP IN BED FOR BREAKFAST.
--- NOTE | 2019-06-13 09:01 | NUR ---
PATIENT AMBULATING WITH PHYSICAL THERAPY. PATIENT USING OWN WALKER. HAS BEEN GIVEN SCHEDULED MEDS PER EMAR. LAST BP 188/90 HR 89
--- NOTE | 2019-06-13 11:53 | NUR ---
PATIENT RESTING QUIETLY. WAITING FOR DIALYSIS. RECEIVED DISCHARGE ORDER FOR PATIENT AFTER DIALYSIS.
--- NOTE | 2019-06-13 13:19 | NUR ---
PATIENT HAS EATEN LUNCH. AWAITING DIALYSIS.
--- NOTE | 2019-06-13 14:30 | NUR ---
PHYSICAL THERAPY DAILY NOTES CO-SIGN All documentation done by the Linux Devops Engineer for 06/13/19 has been reviewed. I agree with the documentation. Reviewed/Co-Signed by: Bushra Davye PT Documentation Done by: JANET HUTCHINS PTA
--- NOTE | 2019-06-13 14:32 | NUR ---
DIALYSIS NURSE AT BEDSIDE; PREPARING FOR HD.
--- NOTE | 2019-06-13 14:48 | NUR ---
Follow-up Nutrition Assessment: (256T-B) BOWEN ESTRADA 63F Dx: Hyperkalemia, Back Pain, ESRD PMHx: ESRD on HD, DM, PUD, HTN, CVA, CHF, Hypothyroidism Labs: BG 113 H, A1c 7.1 H, BUN 48 H, Cr 4.1 H, Alb 2.9 L ,Ca 8.2 L, Phos 5.7 H, Trig 180 H, BNP 875.81 H, TSH 6.990 H, PTT 30.5 H Meds: Adalat, Coreg, Hydralazine, Lactinex, Renagel, Synthroid, Zofran Diet: Renal (Cardiac/CCHO) PO Intake: ~92% Weights: 190# (06/09), pt stated 90# (05/30) I/Os: 680/0 (06/13) 740/1500 (06/12) 1185/0 (06/11) 300/3000 (06/10) Skin: Warm, dry, and intact Jb: 20 Edema: None noted GI: Last BM: 06/09 Note (06/13): Pt reviewed during bed huddles, was planned D/C over weekend, c/o back pain, scheduled abd US and HD in AM. Visited pt bedside, being dialyzed at this time, Citizen Of [place]-speaking only. Pt appeared tired at this time, but states appetite and food is good. Noted good PO. Pt also states still has back pain 10/10. Usually weighs about 90-95#. Estimated Nutritional Needs Based on actual body weight (40.9 kg) Energy: 7668-1398 kcal/day (35-40 kcal/kg for wt gain) Protein: 41-49 g/day (1.0-1.2 g/kg for ESRD on HD) Fluid: Per MD (ESRD on HD) Nutrition Diagnosis: 06/10: Malnutrition r/t ESRD on HD AEB BMI 17.6 06/13: Malnutrition r/t ESRD on HD AEB BMI 17.6 (ongoing) Intervention: 1. Continue current Renal (Cardiac/CCHO) diet order Monitor/Evaluate: Goal: Have pt meet at least 75% of estimated needs Monitor: PO intake, Labs, GI function F/U in 2-3 days as high risk 06/15-06/16
--- NOTE | 2019-06-13 14:48 | NUR ---
Recommendation(s): 1. Continue current Renal (Cardiac/CCHO) diet order
--- NOTE | 2019-06-13 15:31 | NUR ---
HEMODIALYSIS IN PROGRESS. BM IN NORMAL RANGE AT THIS TIME.
--- NOTE | 2019-06-13 18:27 | NUR ---
HEMODIALYSIS COMPLETED. TOTAL OF 3000 ML REMOVED. BP POST DIALYSIS = 129/58 MAP 76. HR 85. PATIENT NOW EATING DINNER.
--- NOTE | 2019-06-13 18:57 | NUR ---
PRINTED DISCHARGE INSTRUCTIONS GIVEN AND EXPLAINED TO PATIENT'S DAUGHTER USING [employer] TELEPHONE TALENT PROGRAM MANAGER ID # [id number]. IV CATHETER RENMOVED INTACT. TAKEN OFF CARDIAC MONITORING. DISCHARGE HOME WITH DAUGHTER. TAKEN TO CAR IN WHEELCHAIR BY GORGE.
== END 2019-06-13 18:58 | disposition home or self-care (01) | DRG 551 ==
LOC: ED 04:21 → DU 06:04
PROVIDERS: Emergency Medicine; ADMIT General Practice
PROC: 5A1D70Z Performance of Urinary Filtration, Intermittent, Less than 6 Hours Per Day (ICD-10-PCS; principal; 2019-06-09)
PROC: 5A1D70Z Performance of Urinary Filtration, Intermittent, Less than 6 Hours Per Day (ICD-10-PCS; 2019-06-11)
PROC: 5A1D70Z Performance of Urinary Filtration, Intermittent, Less than 6 Hours Per Day (ICD-10-PCS; 2019-06-13)
DX: M51.36 Other intervertebral disc degeneration, lumbar region (principal); N18.6 End stage renal disease; I13.2 Hypertensive heart and chronic kidney disease with heart failure and with stage 5 chronic kidney disease, or end stage renal disease; E87.1 Hypo-osmolality and hyponatremia; E44.1 Mild protein-calorie malnutrition; I50.32 Chronic diastolic (congestive) heart failure; E87.5 Hyperkalemia; E87.8 Other disorders of electrolyte and fluid balance, not elsewhere classified; E11.65 Type 2 diabetes mellitus with hyperglycemia; G89.29 Other chronic pain; D63.8 Anemia in other chronic diseases classified elsewhere; E11.22 Type 2 diabetes mellitus with diabetic chronic kidney disease; E11.51 Type 2 diabetes mellitus with diabetic peripheral angiopathy without gangrene; E03.9 Hypothyroidism, unspecified; Z86.73 Personal history of transient ischemic attack (TIA), and cerebral infarction without residual deficits; Z99.2 Dependence on renal dialysis; Z87.11 Personal history of peptic ulcer disease; Z90.49 Acquired absence of other specified parts of digestive tract; Z83.3 Family history of diabetes mellitus; Z79.899 Other long term (current) drug therapy
CPT/HCPCS: 83880; 84439; 97116-GP; 97530-GP; G0378; J0360; J2270; J2405; J7030; Q0092

== ENCOUNTER 2019-07-11 14:31 | Emergency (ER) | payer BC, OTHER ==
[~2019-07-11] VITALS: Ht 152.4 cm; Wt 38.1 kg
[~2019-07-11 14:31] MED LIST changes: +LEVOTHYROXINE0.05 M2 PO; +RENVELA800 M1 PO
[2019-07-11 14:43] VITALS: Ht 152.4 cm; Wt 38.1 kg
[2019-07-11 15:51] LABS: BASOPHIL % 0.1 % (0-2)
[2019-07-11 15:52] LABS: PLATELET COUNT 462 x10^3mcL (130-400); RED CELL DISTRIBUTION WIDTH 16.5 % (11.5-14.5)
[2019-07-11 16:36] LABS: BILIRUBIN TOTAL 0.31 mg/dL (0.20-1.00); CALCIUM 9.4 mg/dL (8.5-10.1); CARBON DIOXIDE 34.6 mmol/L (21-32); CREATININE SERUM 2.7 mg/dL (0.6-1.0); POTASSIUM SERUM 3.7 mmol/L (3.5-5.1)
[2019-07-11 16:37] LABS: ALBUMIN 3.3 g/dL (3.4-5.0); TOTAL PROTEIN, SERUM 10.4 g/dL (6.4-8.2)
[2019-07-11 17:33] VITALS: BP 143/69
== END 2019-07-11 17:33 | disposition home or self-care (01) ==
LOC: ED 14:31
PROVIDERS: Emergency Medicine
DX: M54.5 Low back pain (principal); R10.32 Left lower quadrant pain; I10 Essential (primary) hypertension; E11.9 Type 2 diabetes mellitus without complications; K21.9 Gastro-esophageal reflux disease without esophagitis; Z90.49 Acquired absence of other specified parts of digestive tract
CPT/HCPCS: 82962; J1885; Q0092

== ENCOUNTER 2019-08-21 13:29 | Emergency (ER) | payer BC, OTHER ==
[~2019-08-21] VITALS: Ht 149.9 cm; Wt 39.9 kg
[2019-08-21 13:33] VITALS: Ht 149.9 cm; Wt 39.9 kg
[2019-08-21 14:22] LABS: ALKALINE PHOSPHATASE 133 U/L (46-116); ALT/SGPT 9 U/L (14-59); AST/SGOT 18 U/L (15-37); BILIRUBIN TOTAL 0.2 mg/dL (0.20-1.00); CALCIUM 8.6 mg/dL (8.5-10.1); CARBON DIOXIDE 28.2 mmol/L (21-32); CHLORIDE SERUM 94 mmol/L (98-107); CHOLESTEROL 173 mg/dL (<200); GLUCOSE SERUM 262 mg/dL (74-106); POTASSIUM SERUM 4.9 mmol/L (3.5-5.1); SODIUM SERUM 131 mmol/L (136-145); TOTAL PROTEIN, SERUM 8.1 g/dL (6.4-8.2)
[2019-08-21 14:24] LABS: ALBUMIN 2.4 g/dL (3.4-5.0); GFR1 12 mL/min
[2019-08-21 14:25] LABS: CREATININE SERUM 4.1 mg/dL (0.6-1.0)
[2019-08-21 14:34] LABS: BASOPHIL % 0.1 % (0-2)
[2019-08-21 14:37] LABS: PLATELET COUNT 536 x10^3mcL (130-400); RED CELL DISTRIBUTION WIDTH 16.6 % (11.5-14.5)
[2019-08-21] MEDS ORDERED: CALCIUM ACETAT667 M3 PO (16:25)
[2019-08-21] MEDS ORDERED: GLYBURIDE2.5 MG PO (16:25)
[2019-08-21] MEDS ORDERED: NEURONTIN100 MG (16:26)
[2019-08-21 17:09] VITALS: BP 158/80
== END 2019-08-21 17:09 | disposition home or self-care (01) ==
LOC: ED 13:29
DX: E11.649 Type 2 diabetes mellitus with hypoglycemia without coma (principal); E11.22 Type 2 diabetes mellitus with diabetic chronic kidney disease; I12.0 Hypertensive chronic kidney disease with stage 5 chronic kidney disease or end stage renal disease; N18.6 End stage renal disease; D64.9 Anemia, unspecified; E46 Unspecified protein-calorie malnutrition; Z99.2 Dependence on renal dialysis; Z90.710 Acquired absence of both cervix and uterus; Z86.73 Personal history of transient ischemic attack (TIA), and cerebral infarction without residual deficits
CPT/HCPCS: 36415; 82962; G0480; J3490

== ENCOUNTER 2019-08-23 20:21 | Inpatient (IN) | payer BC, OTHER ==
[~2019-08-23] VITALS: Ht 152.4 cm; Wt 43.5 kg
[~2019-08-23 20:21] MED LIST changes: +CALCIUM ACETAT667 M3 PO; +GLYBURIDE2.5 MG PO; +NEURONTIN100 MG
[2019-08-23 20:36] VITALS: Ht 152.4 cm; Wt 43.5 kg
[2019-08-23 21:11] LABS: BASOPHIL % 0.2 % (0-2)
[2019-08-23 21:17] LABS: PLATELET COUNT 426 x10^3mcL (130-400); RED CELL DISTRIBUTION WIDTH 17.7 % (11.5-14.5)
[2019-08-23 21:28] LABS: ALBUMIN 2.6 g/dL (3.4-5.0); BILIRUBIN TOTAL 0.22 mg/dL (0.20-1.00); CALCIUM 8.5 mg/dL (8.5-10.1); CARBON DIOXIDE 33.5 mmol/L (21-32); POTASSIUM SERUM 5.5 mmol/L (3.5-5.1); TOTAL PROTEIN, SERUM 8.4 g/dL (6.4-8.2)
[2019-08-23 21:41] LABS: CK-MB 2.9 ng/mL (0-3.6)
[2019-08-24] VITALS (7 sets, daily range): BP systolic 95–226; BP diastolic 63–99
[2019-08-24 06:42] LABS: BASOPHIL % 0.2 % (0-2)
[2019-08-24 06:48] LABS: CALCIUM 7.9 mg/dL (8.5-10.1); CARBON DIOXIDE 30.3 mmol/L (21-32); PHOSPHOROUS 3.2 mg/dL (2.5-4.9); POTASSIUM SERUM 5.4 mmol/L (3.5-5.1)
[2019-08-24 06:52] LABS: PLATELET COUNT 418 x10^3mcL (130-400); RED CELL DISTRIBUTION WIDTH 17.7 % (11.5-14.5)
[2019-08-24 07:31] LABS: CREATININE SERUM 4.3 mg/dL (0.6-1.0)
[2019-08-25] VITALS (11 sets, daily range): BP systolic 172–212; BP diastolic 76–98
[2019-08-25 06:56] LABS: CALCIUM 8.1 mg/dL (8.5-10.1); CARBON DIOXIDE 29.3 mmol/L (21-32); CREATININE SERUM 2.8 mg/dL (0.6-1.0); MAGNESIUM 1.8 mg/dL (1.8-2.4); PHOSPHOROUS 3.2 mg/dL (2.5-4.9); POTASSIUM SERUM 4.2 mmol/L (3.5-5.1)
[2019-08-25 11:05] LABS: BASOPHIL % 0.2 % (0-2); PLATELET COUNT 354 x10^3mcL (130-400)
[2019-08-26 00:44] VITALS: BP 180/86
[2019-08-26 04:14] VITALS: BP 127/62
[2019-08-26 10:56] LABS: BASOPHIL % 0.6 % (0-2); PLATELET COUNT 327 x10^3mcL (130-400)
[2019-08-26 11:00] LABS: RED CELL DISTRIBUTION WIDTH 16.6 % (11.5-14.5)
[2019-08-26 11:14] LABS: CALCIUM 8.4 mg/dL (8.5-10.1); CARBON DIOXIDE 32.3 mmol/L (21-32); CREATININE SERUM 1.5 mg/dL (0.6-1.0); MAGNESIUM 1.5 mg/dL (1.8-2.4); POTASSIUM SERUM 3.1 mmol/L (3.5-5.1)
[2019-08-26 11:59] VITALS: BP 149/66
[2019-08-26 16:16] VITALS: BP 169/81
[2019-08-26 20:38] VITALS: BP 197/96
[2019-08-26 21:54] VITALS: BP 185/91
[2019-08-27] VITALS (8 sets, daily range): BP systolic 127–182; BP diastolic 64–87
[2019-08-27 06:49] LABS: BASOPHIL % 0.4 % (0-2); PLATELET COUNT 302 x10^3mcL (130-400)
[2019-08-27 06:59] LABS: RED CELL DISTRIBUTION WIDTH 17.6 % (11.5-14.5)
[2019-08-27 09:37] LABS: CARBON DIOXIDE 23.1 mmol/L (21-32); CREATININE SERUM 3.1 mg/dL (0.6-1.0)
[2019-08-27 09:57] LABS: POTASSIUM SERUM 6.1 mmol/L (3.5-5.1)
[2019-08-28 06:15] VITALS: BP 176/82
[2019-08-28 06:56] LABS: BASOPHIL % 0.3 % (0-2); PLATELET COUNT 360 x10^3mcL (130-400)
[2019-08-28 07:05] LABS: CALCIUM 7.7 mg/dL (8.5-10.1); CARBON DIOXIDE 26.3 mmol/L (21-32); CREATININE SERUM 3.8 mg/dL (0.6-1.0); MAGNESIUM 2.1 mg/dL (1.8-2.4)
[2019-08-28 07:13] LABS: POTASSIUM SERUM 6.1 mmol/L (3.5-5.1)
[2019-08-28 07:28] LABS: RED CELL DISTRIBUTION WIDTH 17.4 % (11.5-14.5)
[2019-08-28 07:56] VITALS: BP 197/87
[2019-08-28 12:10] VITALS: BP 170/78
[2019-08-28 13:54] VITALS: BP 146/73
[2019-08-28 17:25] VITALS: BP 162/81
[2019-08-28 21:50] VITALS: BP 157/74
[2019-08-29 05:00] VITALS: BP 178/78
[2019-08-29 08:02] VITALS: BP 175/83
[2019-08-29 08:36] LABS: CARBON DIOXIDE 21.8 mmol/L (21-32)
[2019-08-29 08:55] LABS: BASOPHIL % 0.5 % (0-2); PLATELET COUNT 391 x10^3mcL (130-400)
[2019-08-29 08:57] LABS: RED CELL DISTRIBUTION WIDTH 16.9 % (11.5-14.5)
[2019-08-29 09:15] LABS: CREATININE SERUM 4.6 mg/dL (0.6-1.0); POTASSIUM SERUM 5.7 mmol/L (3.5-5.1)
[2019-08-29 11:46] VITALS: BP 118/62
[2019-08-29 11:59] VITALS: BP 119/73
[2019-08-29 20:21] VITALS: BP 144/73
[2019-08-30] VITALS (8 sets, daily range): BP systolic 130–178; BP diastolic 67–86
[2019-08-30 07:08] LABS: CALCIUM 7.9 mg/dL (8.5-10.1); CARBON DIOXIDE 22.5 mmol/L (21-32); CREATININE SERUM 3.6 mg/dL (0.6-1.0); MAGNESIUM 2.4 mg/dL (1.8-2.4)
[2019-08-30 07:10] LABS: BASOPHIL % 0.3 % (0-2); PLATELET COUNT 349 x10^3mcL (130-400)
[2019-08-30 07:38] LABS: POTASSIUM SERUM 5.9 mmol/L (3.5-5.1)
[2019-08-30 07:44] LABS: RED CELL DISTRIBUTION WIDTH 16.8 % (11.5-14.5)
[2019-08-31 05:23] VITALS: BP 153/72
[2019-08-31 06:33] LABS: CALCIUM 8.2 mg/dL (8.5-10.1); CARBON DIOXIDE 26.2 mmol/L (21-32); POTASSIUM SERUM 5.1 mmol/L (3.5-5.1)
[2019-08-31 06:42] LABS: BASOPHIL % 0.3 % (0-2); PLATELET COUNT 391 x10^3mcL (130-400)
[2019-08-31 06:49] LABS: RED CELL DISTRIBUTION WIDTH 17.1 % (11.5-14.5)
[2019-08-31 06:54] LABS: CREATININE SERUM 4.2 mg/dL (0.6-1.0)
[2019-08-31 07:55] VITALS: BP 175/80
[2019-08-31 11:45] VITALS: BP 135/72
[2019-08-31 13:25] VITALS: BP 126/61
[2019-08-31 16:35] VITALS: BP 142/74
[2019-08-31 20:55] VITALS: BP 165/75
[2019-09-01 04:27] VITALS: BP 145/73
[2019-09-01 07:25] LABS: CALCIUM 7.7 mg/dL (8.5-10.1); CARBON DIOXIDE 27.9 mmol/L (21-32); CREATININE SERUM 3.9 mg/dL (0.6-1.0); POTASSIUM SERUM 4.6 mmol/L (3.5-5.1)
[2019-09-01 10:12] LABS: BASOPHIL % 0.4 % (0-2); PLATELET COUNT 394 x10^3mcL (130-400)
[2019-09-01 10:18] VITALS: BP 122/56
[2019-09-01 10:47] LABS: RED CELL DISTRIBUTION WIDTH 17.2 % (11.5-14.5)
[2019-09-01] MEDS ORDERED: TAMIFLU30 MG PO (11:22)
[2019-09-01] MEDS ORDERED: ZITHROMAX TRI-500 MG PO (11:23)
[2019-09-01 12:29] VITALS: BP 145/73
== END 2019-09-01 13:48 | disposition home or self-care (01) | DRG 193 ==
LOC: ED 20:21 → DU 22:07
PROVIDERS: Emergency Medicine; Internal Medicine; ADMIT Internal Medicine
PROC: 5A1D70Z Performance of Urinary Filtration, Intermittent, Less than 6 Hours Per Day (ICD-10-PCS; principal; 2019-08-24)
PROC: 5A1D70Z Performance of Urinary Filtration, Intermittent, Less than 6 Hours Per Day (ICD-10-PCS; 2019-08-26)
PROC: 5A1D70Z Performance of Urinary Filtration, Intermittent, Less than 6 Hours Per Day (ICD-10-PCS; 2019-08-29)
PROC: 5A1D70Z Performance of Urinary Filtration, Intermittent, Less than 6 Hours Per Day (ICD-10-PCS; 2019-08-31)
PROC: 5A1D70Z Performance of Urinary Filtration, Intermittent, Less than 6 Hours Per Day (ICD-10-PCS; 2019-09-01)
DX: J10.08 Influenza due to other identified influenza virus with other specified pneumonia (principal); N18.6 End stage renal disease; J96.01 Acute respiratory failure with hypoxia; J91.8 Pleural effusion in other conditions classified elsewhere; I12.0 Hypertensive chronic kidney disease with stage 5 chronic kidney disease or end stage renal disease; E87.5 Hyperkalemia; E03.9 Hypothyroidism, unspecified; D63.8 Anemia in other chronic diseases classified elsewhere; E11.22 Type 2 diabetes mellitus with diabetic chronic kidney disease; Z99.2 Dependence on renal dialysis; Z86.73 Personal history of transient ischemic attack (TIA), and cerebral infarction without residual deficits; Z83.3 Family history of diabetes mellitus; Z79.899 Other long term (current) drug therapy
CPT/HCPCS: 82962; 87804; 97110-GP; 97116-GP; 97530-GP; G0378; J0360; J0456; J0696; J0885-EC; J1885; J3370; J3490; J7030; J7050; J7060; J7120; J7620; Q0092

== ENCOUNTER 2019-09-15 17:19 | Inpatient (IN) | payer BC, OTHER ==
[~2019-09-15] VITALS: Ht 157.5 cm; Wt 54.4 kg
[~2019-09-15 17:19] MED LIST changes: +ZITHROMAX TRI-500 MG PO
[2019-09-15 17:24] VITALS: Ht 157.5 cm; Wt 54.4 kg
--- NOTE | 2019-09-15 17:24 | NUR ---
PT BIB FAMILY WITH C/O LOW BLOOD SUGAR WITH AN EPISODE OF VOMITING MEAT PACKAGER, PER SON PT "REFUSED TO EAT ALL DAY EXCEPT FOR HER LOW SUGAR DIABETES SHAKES AND STARTED ACTING NOT HERSELF SO WE CHECKED HER SUGAR AND GOT 46" PER SON PT HAS HX DIALYSIS M, W, F WITH LAST TX YESTERDAY, CVA, AND DM. UPON ARRIVAL PT CONFUSED, WITH SPONTANEOUS EYE MOVEMENT AND FLEXION NOTED WITH ACCUCHECK, EMESIS NOTED TO SURROUNDING MOUTH, SKIN PINK COLD AND DRY, RUE SHUNT WITH +BRUIT +THIRLL. PT GOWNED PLACED ON FULL CM, NSR
--- NOTE | 2019-09-15 17:27 | NUR ---
MD CAVANAUGH AT BEDSIDE
--- NOTE | 2019-09-15 17:39 | NUR ---
EKG IN PROGRESS
--- NOTE | 2019-09-15 17:40 | NUR ---
LAB AT BEDSIDE
--- NOTE | 2019-09-15 17:46 | NUR ---
PT SON STS "SHE IS ACTING HERSELF NOW"
[2019-09-15] MEDS ORDERED: NORVASC5 MG PO (17:49)
[2019-09-15] MEDS ORDERED: FLE10 PO (17:50)
[2019-09-15 18:28] LABS: BASOPHIL % 0 % (0-2); PLATELET COUNT 483 x10^3mcL (130-400)
--- NOTE | 2019-09-15 18:32 | NUR ---
PT AAOX4, RESPS E/U, NSR ON CM, VSS, -NAUSEA +DIZZINESS, SPOUSE AT BEDSIDE WHOM INSTRUCTED ME HE WILL BE LEAVING HOWEVER REQUESTS TO BE INFORMED WHEN PT GETS ADMITTED, PT VERBALIZED AGREEMENT/CONSENT
[2019-09-15 18:34] LABS: CALCIUM 8.2 mg/dL (8.5-10.1); CARBON DIOXIDE 32.3 mmol/L (21-32); CREATININE SERUM 3.2 mg/dL (0.6-1.0)
[2019-09-15 18:40] LABS: BILIRUBIN TOTAL 0.2 mg/dL (0.20-1.00); PHOSPHOROUS 2.3 mg/dL (2.5-4.9); TOTAL PROTEIN, SERUM 8.2 g/dL (6.4-8.2); URIC ACID 2.6 mg/dL (2.6-6.0)
[2019-09-15 18:41] LABS: ALBUMIN 2.4 g/dL (3.4-5.0)
--- NOTE | 2019-09-15 19:06 | NUR ---
REPORT GIVEN TO HODA AYALA RN WHOM IS RESUMING CARE OF PT AT THIS TIME
--- NOTE | 2019-09-15 19:18 | NUR ---
PT IS LAYING IN GURNEY, AWAKE, EATING A SANDWICH AND PUDDING, SPEAKING IN FULL CLEAR SENTENCES. RESP E/U, NAD NOTED.
--- NOTE | 2019-09-15 19:33 | NUR ---
ATTEMPTED TO CALL REPORT TO DOUGLAS NASH, TO CALL HER BACK IN 5 MINUTES.
--- NOTE | 2019-09-15 19:41 | NUR ---
REPORT CALLED TO DOUGLAS NASH TO ASSUME CARE OF PT. PT'S CALLED TO BE MADE AWARE OF ADMIT, PER PT'S REQUEST.
--- NOTE | 2019-09-15 19:50 | NUR ---
RECEIVED PT VIA PATRICIA FROM E/D, ACCOMPANIED BY RN. PT A/A/O X 2 (PERSON, PURPOSE), EPISODES OF CONFUSION (E.G., FORGOT LAST NAME), CALM, COOPERATIVE TO CARE. WOLOF-SPEAKING ONLY, JULIO SEVILLA PR/ FOR TRANSLATION. DENIES CHEST PAIN OR DISCOMFORT AT THIS TIME. SCD BY BEDSIDE. NO ACUTE RESPIRATORY DISTRESS NOTED. WEARS FULL UPPER DENTURES. ANURIC, ON H/D MWF, LAST: 09/14/19, RUE AV SHUNT +THRILL/BRUIT, DRESSING CDI. GENERALIZED WEAKNESS, AMBULATES W/ WALKER @ BASELINE, C/O CHRONIC ACHING BACK PAIN 07/28 EXACERBATED BY MOVEMENT AND WALKING, RELIEVED BY REST AND PAIN MEDICATIONS; FALL RISK PROTOCOL IN PLACE. IV SITE L THUMB 23G, CDI. ORIENTED PT TO ROOM, BED CONTROLS, CALL LIGHT SYSTEM. SIDE RAILS UP X 2, BED IN LOW POSITION. WILL ENDORSE TO DOUGLAS NASH.
[2019-09-15 20:25] VITALS: BP 175/78
[2019-09-15 20:28] VITALS: BP 175/78
--- NOTE | 2019-09-15 21:48 | NUR ---
INITIATED THE FLIUDS OF D10 AT 20 CC/H,WILL CONTINUE TO MONITOR.
--- NOTE | 2019-09-16 02:17 | NUR ---
PT SLEEPING AT THIS TIME AND WILL CONTINUE TO MONITOR.
--- NOTE | 2019-09-16 06:25 | NUR ---
PT RESTING AT THIS TIME,FINGER STICK DONE WAS 56,PT ASYSTOMATIC,PT WAS GIVEN 1 CUP OF APPLE JUICE WITH 2 PACKS OF SUGAR,PT ON D10 AT 20 CC/HR,PER AT THE BEDSIDE SAYS PATIENT FINGER STICK ALWAYS LOW IN AM AND,PATIENT ON DIET,NEED TO BE ENCOURAGE TO EAT,WILL CONTINUE TO MONITOR.
[2019-09-16 06:46] VITALS: BP 171/75
--- NOTE | 2019-09-16 06:51 | NUR ---
DR HOLLOWAY MADE AWARE OF PATIENT FINGER STICK THIS AM IS 56,WAS GIVEN SAYS ITS OKAY,WILL CONTINUE TO MONITOR,PT HAD A RESTING NIGHT NO CHANGE AT THIS TIME,WILL CONMTINJE TO MONITOR.
--- NOTE | 2019-09-16 07:01 | NUR ---
REPEATED FINGER STICK AGAIN AFTER THE APLLE JUICE AND 2 PACKS OF SUGAR GIVEN IS 91,PT RESTING AT THIS TIME,ASYSTOMATIC AND WILL CONTINUE TO MONITOR.
--- NOTE | 2019-09-16 07:05 | NUR ---
RECEIVED PT SURGEON PARTNER NURSE. PT IN BED SLEEPING, AROUSABLE, RESP E/U ON RA. NO SIGNS OF ACUTE DISTRESS NOTED. IV TO L THUMB W/ NO SIGNS OF INFILTRATION, IVF INFUSING WELL. AV SHUNT TO SUSANNE W/ DRESSING CDI. BED IN LOWEST POSITION AND CALL LIGHT WITHIN REACH. PT AT BEDSIDE. WILL CONTINUE TO MONITOR.
[2019-09-16 07:13] LABS: BASOPHIL % 0.1 % (0-2); PLATELET COUNT 397 x10^3mcL (130-400)
[2019-09-16 07:31] LABS: CARBON DIOXIDE 29.7 mmol/L (21-32); CREATININE SERUM 3.4 mg/dL (0.6-1.0); MAGNESIUM 2.4 mg/dL (1.8-2.4); PHOSPHOROUS 2.6 mg/dL (2.5-4.9); POTASSIUM SERUM 3.8 mmol/L (3.5-5.1)
[2019-09-16 08:31] VITALS: BP 170/75
--- NOTE | 2019-09-16 13:44 | NUR ---
ACCUCHECK DONE, BLOOD GLUCOSE: 29. PT AOX2, DENIES HEADACHE, NAUSEA/DIZZINES OR SOB. DR. ESCOBAR NOTIFIED. D50 ADMINISTERED ORDERED PER EMAR. DIALYSIS STARTED AT THIS TIME. BED IN LOWEST POSITION AND CALL LIGHT WITHIN REACH. WILL CONTINUE TO MONITOR.
--- NOTE | 2019-09-16 16:30 | NUR ---
DIALYSIS COMPLETED AT THIS TIME. 2000 ML OUT.
[2019-09-16 16:50] VITALS: BP 164/79
--- NOTE | 2019-09-16 18:20 | NUR ---
PT RESTING IN BED, AOX2, RESP E/U ON RA. DENIES BACK PAINA T THIS TIME, NO ACUTE DISTRESS NOTED. IV TO L THUMB W/ NO SIGNS OF INFILTRATION, IVF INFUSING WELL. BED IN LOWEST POSITION AND CALL LIGHT WITHIN REACH. AT BEDSIDE. WILL ENDORSE TO ONCOMING NURSE.
--- NOTE | 2019-09-16 19:35 | NUR ---
RECIEVED PT RESTING IN BED WITH NO ACUTE DISTRESS NOTED AT THIS TIME AND ONE FAMILY MEMBER AT BEDSIDE, ASSESMENT PERFORMED AT THIS TIME, PT IS A/OX3 NO COMPLAINTS OF CABRERA OR DIZZINESS NOTED AT THIS ITME, PT DENIES PAIN OR SOB AT THIS TIME, IV TO THE RIGHT THUMB, CDI, FLUSHES WELL, ALL PT NEEDS ATTENDED TO AT THIS TIME, SAFETY PRECAUTIONS IN PLACE, WILL CONTINUE TO MONIITOR
[2019-09-16 20:34] VITALS: BP 186/82
--- NOTE | 2019-09-16 20:34 | NUR ---
PT BP 186/82, PT IS ASYMPTOMATIC, ADMINISTERED PTS SCHEDULED BP MEDS WILL CONTINUE TO MONITOR AND RETAKE BP
[2019-09-16 22:04] VITALS: BP 153/62
--- NOTE | 2019-09-16 22:04 | NUR ---
PT BP NOW 153/62, WILL CONTINUE TO MONITOR
--- NOTE | 2019-09-17 00:18 | NUR ---
PT RESTING IN BED WITH NO DISTRESS NOTED AT THIS TIMME, PT DENIES PAIN OR SOB AT THIS TIME. FAMILY MEMBER AT BEDSIDE ALL PT NEEDS ATTENDED TO AT THIS TIME, SAFETY PRECAUTIONS IN PLACE WILL CONTINUE TO MONITOR
--- NOTE | 2019-09-17 02:05 | NUR ---
PT RESTING IN BED WITH FAMILY MEMBER AT BEDSIDE, PT DENIES PAIN OR SOB AT THIS TIME, ALL PT NEEDS ATTENDED TO SAFETY PRECAUTIONS IN PLACE, WILL CONTINUE TO MONITOR
--- NOTE | 2019-09-17 05:20 | NUR ---
PT RESTED COMFORTABLY IN BED THROUGH NIGHT WITH FAMILY MEMBER AT BEDSIDE, PT HAD NO EPIODES OF PAIN, PT DENIED SOB, ALL PT NEEDS WERE ATTENDED TO DURING CARE, WILL CONTINUE TO MONITOR AND ENDORSE CARE TO ONCOMING SHIFT
[2019-09-17 05:40] VITALS: BP 167/77
--- NOTE | 2019-09-17 05:45 | NUR ---
PT BP WAS 167/77 ADMINISTERED SCHEDULED DOSE OF APRESOLINE, WILL CONTINUE TO MONITOR, PT IS ASYMPTOMATIC.
--- NOTE | 2019-09-17 05:52 | NUR ---
PT BP WAS 187/77 ADMINISTERED SCHEDULED DOSE OF APRESOLINE, WILL CONTINUE TO MONITOR, PT IS ASYMPTOMATIC.
[2019-09-17 06:04] LABS: BASOPHIL % 0.3 % (0-2); PLATELET COUNT 352 x10^3mcL (130-400)
[2019-09-17 06:25] LABS: CALCIUM 8.3 mg/dL (8.5-10.1); CARBON DIOXIDE 29.7 mmol/L (21-32); CREATININE SERUM 2.6 mg/dL (0.6-1.0); POTASSIUM SERUM 3.8 mmol/L (3.5-5.1)
--- NOTE | 2019-09-17 07:30 | NUR ---
RECEIVED PT FROM TRIM MACHINE ADJUSTER RN. A/0X3. MED SURG. DENIES CHEST PAIN/PRESSURE. RESPIRATIONS EQUAL AND UNLABORED ON RA. DENIES SOB. PT DNEIES ANY ABDOMINAL PAIN AT THIS TIME. IV TO LEFT THUMB PATENT AND INFUSING. RUE AV SHUNT, BRUIT AND THRILL NOTED. LAST HD ON 09/16 2L OUT. AT BEDSIDE. WILL CONTINUE TO MONITOR. CALL LIGHT IN REACH. BED IN LOWEST POSITION.
[2019-09-17 08:24] VITALS: BP 124/67
--- NOTE | 2019-09-17 10:07 | NUR ---
PT SITTING UP IN BED. NO ACUTE RESP DISTRESS NOTED ON RA. AT BEDSIDE. GIVEN PO MEDS. TOLERATED WELL. PT C/O HEADACHE. MEDICATED PER EMAR. IV TO LFA PATENT AND INFUSING. NO REDNESS OR SWELLING NOTED. IV ANTIBIOTICS INFUSING ORDERED. BLOOD SUGAR CHECKED WAS 137.WILL CONTINUE TO MONITOR. CALL LIGHT IN REACH. BED IN LOWEST POSITION.
--- NOTE | 2019-09-17 12:30 | NUR ---
PT SITTING UP IN BED RESTING. NO ACUTE RESP DISTRESS NOTED ON RA. IV TO LFA PATENT AND INFUSING. NO REDNESS OR SWELLING NOTED. GIVEN PO MEDS. TOLERATED WELL. BLOOD SUGAR CHECKED WAS 126. NO COVERAGE NEEDED. WILL CONTINUE TO MONITOR. CALL LIGHT IN REACH. BED IN LOWEST POSITION.
[2019-09-17 12:34] VITALS: BP 157/75
--- NOTE | 2019-09-17 14:10 | NUR ---
PT IN BED RESTING. NO ACUTE RESP DISTRESS NOTED ON RA. GIVEN PO MEDS. TOLERATED WELL. IV TO LFA PATENT AND INFUSING. NO REDNESS OR SWELLING NOTED. BLOOD SUGAR CHECKED WAS 167. PT C/O BACK PAIN. PER PT GO LIDOCAINE PATCH LAST ADMISSION THAT HELPED WITH PAIN. SPOKE WITH DR. ESCOBAR REGARDING LIDOCAIN PATCH, PER DR. ESCOBAR WILL ORDER. WILL CONTINUE TO MONITOR. CALL LIGHT IN REACH. BED IN LOWEST POSITON.
--- NOTE | 2019-09-17 16:10 | NUR ---
PT SITTING UP IN BED. AT BEDSIDE. GIVEN PO MEDS. TOLERATED WELL. APPLIED LIDODERM PATCH TO RIGHT LOWER BACK. BLOOD SUGAR CHECKED WAS 148. IV TO LFA PATENT AND INFUSING. NO REDNESS OR SWELLING NOTED. WILL CONTINUE TO MONITOR. CALL LIGHT IN REACH. BED IN LOWEST POSITION.
[2019-09-17 16:27] VITALS: BP 157/70
--- NOTE | 2019-09-17 19:20 | NUR ---
RECIEVED PT RESTING IN BED WITH NO ACUTE DISTRESS NOTED AND FAMILY MEMBER AT BEDSIDE, ASSESMENT PERFORMED AT THIS TIME, PT IS A/OX [address] AND TIME, BUT FORGETFUL, PT DENIES PAIN OR SOB AT THIS TIME, IV TO THE LFA 24 G INFUSING D10 AT 20 ML PER HOUR, ALL PT NEEDS ATTENDED TO, SAFETY PRECAUTIONS IN PLACE WILL CONTINUE TO MONITOR
--- NOTE | 2019-09-17 20:54 | NUR ---
SPOKE TO DR. HOLLOWAY ABOUT THE TRENDS OF PATIENT'S BLOOD SUGAR. PER DR. HOLLOWAY, STOP THE D10 INFUSION OF 20 ML/HR AT THIS TIME, CONTINUOUSLY MONITOR PT'S BLOOD SUGAR EVERY 2 HOURS, AND RESUME D10 INFUSION OF 20 ML/HR IF BLOOD SUGAR IS LOW. PRIMARY NURSE RYAN MADE AWARE.
--- NOTE | 2019-09-17 21:40 | NUR ---
DR REID ORDERED TO TAKE PT OFF D10 AND MONITOR ACCUCHECKS, AND IF PT DROPS LOW TO PUT PT BACK ON D10 INFUSION, WILL CONTINUE TO MONITOR
--- NOTE | 2019-09-17 22:00 | NUR ---
PT BP 174/76, PT IS ASYMPTOMATIC, ADMINISTERED HYDRALIZINE 10MG IVP PER PHYSICIANS PRN ORDER, WILL CONTINUE TO MONITOR
[2019-09-17 23:45] VITALS: BP 138/58
--- NOTE | 2019-09-17 23:45 | NUR ---
PT BP NOW 138/58, SAFETY PRECAUTIONS IN PLACE, WILL CONTINUE TO MONITOR
--- NOTE | 2019-09-18 02:10 | NUR ---
RESTARTED D10 DUE TO DROPPING OF PT BLOOD SUGAR, PT IS ASYMPTOMATIC, WILL CONTINUE TO MONITOR
--- NOTE | 2019-09-18 05:07 | NUR ---
PT RESTED THROUGH THE NIGHT WITH NO ACUTE DISTRESS NOTED DURING CARE, STOPPED D10 INFUSION PER DR REID TO SEE IF SUGARS WOULD MAINTAIN AND THEY CONTINUED TO DROP SO D10 WAS RESTARTED, PT HAD NO COMPLAINTS OF PAIN OR SOB THROUGH THE SHIFT, PT HAD ONE EPISODE OF HIGH BLOOD PRESSURE WHICH WAS TREATED WITH PRN HYDRALAZINE TO EFFECT, FAMILY MEMBER REMAINED AT BEDSIDE THROUGH NIGHT, ALL NEEDS ATTENDED TO, WILL CONTINUE TO MONITOR AND ENDORSE CARE
[2019-09-18 05:08] VITALS: BP 168/71
[2019-09-18 06:36] LABS: BASOPHIL % 0.3 % (0-2); PLATELET COUNT 366 x10^3mcL (130-400)
[2019-09-18 06:43] LABS: CALCIUM 7.9 mg/dL (8.5-10.1); CARBON DIOXIDE 28.6 mmol/L (21-32); CREATININE SERUM 3.2 mg/dL (0.6-1.0); MAGNESIUM 2.3 mg/dL (1.8-2.4); PHOSPHOROUS 2.5 mg/dL (2.5-4.9); POTASSIUM SERUM 4.5 mmol/L (3.5-5.1)
[2019-09-18 06:51] LABS: RED CELL DISTRIBUTION WIDTH 20.2 % (11.5-14.5)
[2019-09-18 07:00] VITALS: BP 140/61
--- NOTE | 2019-09-18 07:15 | NUR ---
RECEIVED PT FROM NIGHT NURSE. PT IS LAYING DOWN IN BED WITH HOB UP RESTING. PT LOOKS TO BE IN NO ACUTE DISTRESS AT THIS TIME AND IS COMPLAINING OF PAIN TO THE RIGHT RIB, PT MEDICATED FOR PAIN AT 0700. IV SITE PATENT WITH NO SIGNS OF ERYTHEMA OR SWELLING WITH IV FLUIDS INFUSING. RESPIRATIONS EVEN AND UNLABORED ON ROOM AIR. FAMILY MEMBER AT BEDSIDE. CALL LIGHT WITHIN REACH. WILL CONTINUE TO MONITOR.
--- NOTE | 2019-09-18 08:25 | NUR ---
PT COMPLAINING OF SEVERE 10/10 PAIN TO THE RIGHT CHEST. PT STATES PAIN IS A SHARP, NONRADIATING PAIN TO THE RIGHT CHEST. NOTIFIED RIVET BUCKER HARLEY AND WILL MEDICATE ACCORDING TO EMAR.
[2019-09-18 08:27] VITALS: BP 157/71
--- NOTE | 2019-09-18 09:30 | NUR ---
PT TRANSFERED TO TELE, TELE MONITOR 22 APPLIED ORDERED. TELE MONITOR SHOWING PEAKED T WAVE. PT DENIES ANY CHEST PAIN AT THIS TIME. WILL CONITNUE TO MONITOR.
--- NOTE | 2019-09-18 10:58 | NUR ---
Initial Nutrition Assessment: Dx: low BS, hypoglycemia PMHx: ESRD on HD (MWF; Dr. Pedraza), HTN, CVA, DM, hypothyroidism PSHx: None noted Labs: (09/18) Na 133, K 4.5, Glu 95, BUN 23 H, Cr 3.2 H, H/H 7.6/24. Meds: Colace, coreg, D50%, glucagon, hydralazine, morphine sulfate, norco, Procrit, renagel, Synthroid, Tylenol, Zofran, zosyn Diet: Renal PO intake since admission: (09/16) B: 100%, D: 100%, (09/17) B: 80%, L: 100%. Overall average: 95% x 4 meals. Current average PO intakes provides ~1607 kcal, 72 gm protein which meets > 100% estimated kcal and > 100% estimated protein needs; ADEQUATE. Ht: 157.48 cm / 62 inches / 5'2" Wt: 54.431 kg / 120 pounds BMI: 22.0 kg/m2, normal for age IBW: 110 pounds / 50 kg %IBW: 108% UBW: Age: 64 Food Allergies: NKFA Skin: SUSANNE AV shunt Jb: 16 Edema: none noted GI: WNL Last BM: 09/15/19 RD Note (09/18): Per H&P, Pt is alert, oriented to person/place, not time. Pt speaks Sammarinese only, is able to translate. Pt is a 64 y/o F who presents to the ED with altered mental status secondary to severe hypoglycemia. In ED, Pt's BS was 11. Pt received one dose of glucagon and IV dextrose. Pt did not eat that day and took Glyburide. Denies N/V/C. RDN spoke with Pt's at bedside. Pt was sleeping. Pt's reports Pt has poor appetite but has been gaining weight; likely due to fluid excess related to ESRD. Pt likes to eat [place] food, but Pt's knows that much of the traditional [place] diet is high in phosphorous and potassium and should be limited to do renal concerns; however, if Pt sees him eating those things - she will ask for some, too; to which, he would give her a little bit. He expresses frustration over DM and renal diet differences. RDN expressed emphathy and educated Pt on how to best combine DM and renal diets. Pt's checks BG twice daily; in the morning, usual readings are in the 300s and in the afternoon/evening, usual readings are in between 160-165. He reports that Pt is not on DM medication due to PCP having told him to stop providing DM diet medication. Pt enjoys fish, chicken, soup (without beans). Pt has a nurse and physical therapist who come by the house to help with health care and physical therapy. RDN provided Pt's with handouts from [email or web address]: "Understanding Diabetes" and "Eating Right with Diabetes." RDN provided Pt' with handouts from [email or web address]: "Dietary Guidelines for Adults Starting on Hemodialysis." Pt's appreciative. RDN answered all questions to Pt's 's satisfaction. Consult- Malnutrition Problem with: N/V/D/C: NO Problems with: Chewing: NO Swallowing: NO Current appetite: Poor Recent wt change: Pt fluct likely due to fluid shifts 2/2 ESRD; Pt's husbands states that her target weight at dialysis center is 39 kg, but she usually weighs 44 kg. RDN explained that this might be due to fluid overload, Pt's husbands verbalizes understanding. Vitamin/Supplement use: renal MVI, calcium Special diet at home: Renal/DM Physical activity: Pt has PT in-home Nutrition education given (specify specific nutrition education and handout given): RDN provided Pt's with handouts from [email or web address]: "Understanding Diabetes" and "Eating Right with Diabetes." RDN provided Pt' with handouts from [email or web address]: "Dietary Guidelines for Adults Starting on Hemodialysis." Food-drug interactions? N/A Education given? N/A Estimated Nutritional Needs Based on ideal body weight (50 kg) d/t ESRD on HD. Energy: 3079-4175 (30-35 kcal/day (kcal/kg for ESRD) Protein: 60-75 g/day (1.2-1.5 g/kg for ESRD) Fluid: 7301-1159 mL/day (1 mL/kcal) or per MD Nutrition Diagnosis: 1. Altered nutrition-related labs related to renal dysfunction as evidenced by BUN 23 H, Cr 3.2 H, H/H 7.6/24 on 09/18; dx ESRD on HD. Intervention 1. Continue on Renal Diet as tolerated. Monitor/Evaluate Goal: PO intake at least 75% of estimated needs Monitor: PO intake, Labs, GI function F/U in 3-5 days as moderate risk (09/21-)
--- NOTE | 2019-09-18 10:59 | NUR ---
Intervention 1. Continue on Renal Diet as tolerated.
[2019-09-18 12:55] VITALS: BP 145/65
[2019-09-18 16:12] VITALS: BP 138/65
--- NOTE | 2019-09-18 18:11 | NUR ---
CHECKED PT BLOOD SUGAR ORDERED. PT IS EATING DINNER AT THIS TIME. FIRST READING 62, REPEATED SUGAR CHECK AND SECOND READING 72. PROVIDED PT WITH APPLEJUICE WITH 2 PACKETS OF SUGAR. PT DRANK APPLEJUICE AND IS CONTINUING TO EAT AT THIS TIME. FAMILY MEMBER AT BEDSIDE. WILL CONTINUE TO MONITOR.
--- NOTE | 2019-09-18 18:25 | NUR ---
PT IS LAYING DOWN IN BED WITH HOB UP. PT LOOKS TO BE IN NO ACUTE DISTRESS AT THIS TIME AND DENIES ANY PAIN. RESPIRATIONS EVEN AND UNLABORED ON ROOM AIR. IV SITE PATENT WITH NO SIGNS OF ERYTHEMA OR SWELLING WITH IV FLUIDS INFUSING. LIDOCAINE PATCH PRESENT TO LOWER MIDDLE BACK. AV SHUNT PRESENT TO RUE. FAMILY MEMBER AT BEDSIDE. CALL LIGHT WITHIN REACH. WILL ENDORSE TO ONCOMING SHIFT.
--- NOTE | 2019-09-18 19:30 | NUR ---
RECEIVED REPORT FROM AM NURSE. PT LAYING DOWN IN BED WITH FAMILY AT [facility]. PT AAOX3, FORGETFUL AT TIMES. ABLE TO FOLLOW COMMANDS AND MAKE NEEDS KNWON. ON TELE#22 READING NSR, DENIES CP/PRESSURE AT THIS TIME. PALPABLE PULSES TO ALL EXTREMETIES. MILD SWELLING TO LUE NOTED. LUNG SOUNDS CTA. BREATHING EVEN AND UNLABORED ON RA. NO ACUTE DISTRESS NOTED. ABD SOFT AND NONDISTENDED. ACTIVE BS X4 QUAD. DENIES N/V/D. LAST BM 111/30. PT OLIGURIC, ON HD. LAST HD 09/16 WITH 2L OUTPUT. AV SHUNT TO RUE WITH GOOD THRIIL AND BRUIT. GENERALIZED WEAKNESS, USES WALKER TO AMBULATE. IV TO LFA FLUSHING WELL. SITE FREE FROM REDNESS AND SWELLING. BED AT LOWEST SETTING. SIDE RAILS X2 UP. CALL LIGHT WITHING REACH. WILL CONT TO MONITOR.
[2019-09-18 20:15] VITALS: BP 154/69
--- NOTE | 2019-09-19 00:05 | NUR ---
PT AWAKE LAYING DOWN IN BED WITH AT BEDSIDE. BREATHING EVEN AND UNLABORED ON RA. NO ACUTE DISTRESS NOTED. WILL CONT TO MONITOR.
--- NOTE | 2019-09-19 00:40 | NUR ---
PT BS 67, PT ASYMPTOMATIC. REPORTED RESULTS TO DR HERNANDEZ. PER GIVE APPLE JUICE AND CONT TO MONITOR.
[2019-09-19 05:48] VITALS: BP 170/74
[2019-09-19 06:32] LABS: BASOPHIL % 0.2 % (0-2); PLATELET COUNT 356 x10^3mcL (130-400)
[2019-09-19 06:37] VITALS: BP 156/75
--- NOTE | 2019-09-19 06:38 | NUR ---
PT SLEPT AT INTERVALS THROUGHOUT THE NIGHT, BREATHING EVEN AND UNLABORED ON RA. LAST TWO BS 63, 83. DR HERNANDEZ MADE AWARE. NO NEW ORDERS RECEIVED. NO ACUTE DISTRESS NOTED. ALL NEEDS ASSESSED AND ATTENDED TO. BED AT LOWEST SETTING. SIDE RAILS X2 UP. CALL LIGHT WITHING REACH, WILL ENDORSE CARE TO AM NURSE.
[2019-09-19 06:39] LABS: CARBON DIOXIDE 24.8 mmol/L (21-32); POTASSIUM SERUM 5.1 mmol/L (3.5-5.1); RED CELL DISTRIBUTION WIDTH 20.4 % (11.5-14.5)
--- NOTE | 2019-09-19 08:00 | NUR ---
Spoke with DENIS Woods regarding patient's blood sugar 66 and blood sugar trends. New orders reviewed, implemented, and carried out. Patient made aware. Will continue to monitor.
[2019-09-19 08:53] VITALS: BP 186/87
--- NOTE | 2019-09-19 09:29 | NUR ---
Called Dr. Spencer Pedraza regarding putting in HD orders for patient scheduled for HD today (M, W, F). Dr. Godwin, co founder and ceo, covering for Dr. Pedraza today. DOUGLAS Vernoncomputer programming professor notified. Patient made aware. Will continue to monitor. Call light within reach.
--- NOTE | 2019-09-19 11:13 | NUR ---
Dialysis nurse present to set up patient for dialysis. Awaiting MD order.
[2019-09-19 12:02] VITALS: BP 143/69
--- NOTE | 2019-09-19 14:08 | NUR ---
PER TECHNICAL SALES SUPPORT SPECIALIST, 3L OF FLUID TAKEN OUT DURING HD. NO A/R NOTED. PATIENT ABLE TO EAT AFTERWORDS. WILL CONTINUE TO MONITOR. CALL LIGHT WITHIN REACH.
[2019-09-19 14:25] LABS: rbc morphology (normal/abnorm) ABNORMAL (NORMAL)
[2019-09-19 15:07] VITALS: BP 132/76
--- NOTE | 2019-09-19 15:50 | NUR ---
DISCHARGE INFORMATION AND EDUCATION ON POST-HOSPITAL CARE PROVIDED FOR PATIENT. AT BEDSIDE. PATIENT IN STABLE CONDITION. NO SIGNS OF DISTRESS NOTED. WINDOW DISPLAY DESIGNER REMOVED. TELE STATION NOTIFIED. IV CATHETER REMOVED. SITE C/D/I AND NO S/SX INFILTRATION NOTED. PATIENT DISCHARGED BY WHEELCHAIR TO CAR WITH .
--- NOTE | 2019-09-20 07:59 | NUR ---
PHYSICAL THERAPY DAILY NOTES CO-SIGN All documentation done by the Powerhouse Mechanic Helper for 09/19/19 has been reviewed. I agree with the documentation. Reviewed/Co-Signed by: Bushra Davey PT Documentation Done by:JANET HUTCHINS PTA
== END 2019-09-19 15:53 | disposition home or self-care (01) | DRG 637 ==
LOC: ED 17:19 → MU 19:16 → DU 09-18 09:27
PROVIDERS: Emergency Medicine; ADMIT Internal Medicine
PROC: 5A1D70Z Performance of Urinary Filtration, Intermittent, Less than 6 Hours Per Day (ICD-10-PCS; principal; 2019-09-16)
PROC: 5A1D70Z Performance of Urinary Filtration, Intermittent, Less than 6 Hours Per Day (ICD-10-PCS; 2019-09-19)
DX: E11.649 Type 2 diabetes mellitus with hypoglycemia without coma (principal); J18.9 Pneumonia, unspecified organism; G93.41 Metabolic encephalopathy; I12.0 Hypertensive chronic kidney disease with stage 5 chronic kidney disease or end stage renal disease; N18.6 End stage renal disease; E11.22 Type 2 diabetes mellitus with diabetic chronic kidney disease; G89.29 Other chronic pain; M54.9 Dorsalgia, unspecified; E03.9 Hypothyroidism, unspecified; D72.829 Elevated white blood cell count, unspecified; T50.995A Adverse effect of other drugs, medicaments and biological substances, initial encounter; D63.1 Anemia in chronic kidney disease; Z79.84 Long term (current) use of oral hypoglycemic drugs; Z86.73 Personal history of transient ischemic attack (TIA), and cerebral infarction without residual deficits; Z99.2 Dependence on renal dialysis; I25.2 Old myocardial infarction; Y92.89 Other specified places as the place of occurrence of the external cause; Z82.61 Family history of arthritis; Z79.899 Other long term (current) drug therapy
CPT/HCPCS: 82962; 87804; 94150; 97110-GP; 97116-GP; 97530-GP; B4164; C9113; G0378; J0360; J0456; J0696; J0885-EC; J1610; J2270; J2543; J3490; J7030; J7050; J7620; Q0092

== ENCOUNTER 2020-01-21 11:02 | Emergency (ER) | payer OTHER, MEDICAID ==
[~2020-01-21] VITALS: Ht 144.8 cm; Wt 35.4 kg
[~2020-01-21 11:02] MED LIST changes: +ADALAT CC60 MG PO; +COREG3.125 MG PO; +KAPVAY0.1 MG PO; +NORVASC5 MG PO; +ULTRAM50 MG PO
[2020-01-21 11:07] VITALS: Ht 144.8 cm; Wt 35.4 kg
[2020-01-21 12:31] LABS: BASOPHIL % 0.3 % (0-2); PLATELET COUNT 372 x10^3mcL (130-400)
[2020-01-21 12:38] LABS: CALCIUM 9.1 mg/dL (8.5-10.1); CARBON DIOXIDE 32.5 mmol/L (21-32); CREATININE SERUM 2.3 mg/dL (0.6-1.0); POTASSIUM SERUM 3.9 mmol/L (3.5-5.1)
[2020-01-21 12:42] LABS: BILIRUBIN TOTAL 0.2 mg/dL (0.20-1.00)
[2020-01-21 12:44] LABS: ALBUMIN 2.6 g/dL (3.4-5.0)
[2020-01-21 14:53] VITALS: BP 176/97
== END 2020-01-21 14:53 | disposition home or self-care (01) ==
LOC: ED 11:02
PROVIDERS: Emergency Medicine
DX: K59.00 Constipation, unspecified (principal); I10 Essential (primary) hypertension; E11.22 Type 2 diabetes mellitus with diabetic chronic kidney disease; I12.0 Hypertensive chronic kidney disease with stage 5 chronic kidney disease or end stage renal disease; N18.6 End stage renal disease; Z99.2 Dependence on renal dialysis; Z86.73 Personal history of transient ischemic attack (TIA), and cerebral infarction without residual deficits
CPT/HCPCS: 36415; J3010